=== PATIENT | male | born 1965 | race Caucasian/White ===

== ENCOUNTER 2024-03-07 16:04 | Emergency (ER) | payer OTHER, SELFPAY ==
[2024-03-07 16:11] VITALS: BP 137/84
[2024-03-07 16:30] LABS: % Basophils 0.8 % (0-2); % Eosinophils 13.6 % (0-6); % Immature Granulocytes 0.1 % (0-0.5); % Lymphocytes 23.9 % (20.5-51.1); % Monocytes 6.7 % (1.7-9.3); % Neutrophils 54.9 % (42.2-75.2); Absolute Basophils 0.1 10^3/uL (0-0.2); Absolute Lymphocytes 1.7 10^3/uL (1.2-3.4); Absolute Monocytes 0.5 10^3/uL (0.1-0.6); Absolute Neutrophils 3.9 10^3/uL (1.4-6.5); Hemoglobin 14.5 g/dL (13.0-18.0); Mean Corp Hgb Conc. 36.3 g/dL (33.0-37.0); Mean Corpuscular Hgb 28.6 pg (27.0-31.0); Mean Corpuscular Volume 78.9 fL (80.0-94.0); Mean Platelet Volume 9.1 fL (7.4-10.4); Nucleated Red Blood Cells % 0 % (-); Platelet Count 206 10^3/uL (130-400); Red Blood Cell Count 5.07 10^6/uL (4.70-6.10); Red Cell Dist. Width 12.9 % (11.5-14.5); White Blood Cell Count 7.1 10^3/uL (4.8-10.8)
[2024-03-07 16:54] LABS: ALT (SGPT) 22 U/L (0-50); AST (SGOT) 31 U/L (17-59); Albumin 4.1 g/dl (3.5-5.0); Alkaline Phosphatase 74 U/L (38-126); Blood Urea Nitrogen 15 mg/dl (9-20); Calcium 9.7 mg/dl (8.4-10.2); Carbon Dioxide 20 mmol/L (22-30); Glucose 291 mg/dl (70-99); Lipase 101 U/L (23-300); Total Bilirubin 0.6 mg/dl (0.2-1.3); Total Protein 6.6 g/dl (6.3-8.2); eGFR > 60.00
[2024-03-07 17:04] LABS: Chloride 104 mmol/L (98-107); Potassium 4.9 mmol/L (3.5-5.1); Sodium 131 mmol/L (135-145)
[2024-03-07 18:15] VITALS: BMI 31.4
[2024-03-07 18:21] VITALS: BP 139/69
[2024-03-07 19:00] VITALS: BP 125/79
--- NOTE | 2024-03-07 19:23 | ED.GENMED ---
History of Present Illness
General
Chief Complaint: Abdominal Pain
Source: patient
Exam Limitations: none
Time Seen by Provider: 03/07/24 19:01
Travel History
Have you had any contact with someone who has COVID-19?: No
Do you have any symptoms of coronavirus? Fever > 100 degrees, chills, cough, shortness of breath, sore throat, loss of taste or smell, muscle aches, or headache?: No
History of Present Illness
History of Present Illness:
This is a 58 year old male that comes in with c/o abd pain. States that he is on Ozempic and they recently have been increasing his dosage. States that he went from .25mg to .5mg and then up to 1mg about 3 weeks ago. States that after this he
feels like he has a'thunder storm in his stomach' as you can just hear the gas rolling around at night. States that he has lost 4 pounds. States that he started with diarrhea right away and every 20min he was going to the bathroom. States that this
is the third week of having diarrhea. Today he saw his [facility] and he sent him to the ER to r/o abd pain, issues before he changes his medication. States that he has had nausea, vomited a few nights ago and the diarrhea. Denies any fever,
chills, chest pain, SOB, headache, dizziness, urinary burning.
Past History
Past History
ED Past Medical History: Arrthythmia (Atrial fibrillation), HTN and NIDDM
ED Past Surgical History: Appendectomy, Orthopedic (Right leg surgery) and Other (facial reconstruction)
Social History
Tobacco: Former smoker
Alcohol: Occasional (Very ocasional)
Personal:
Living: with family
Review of Systems
Review of Systems
All Other Systems: ROS reviewed and negative except as documented in HPI and ROS
Constitutional: Reports no symptoms; Denies fever or chills
EENT: Reports no symptoms
Respiratory: Reports no symptoms; Denies cough or trouble breathing
Cardiac: Reports no symptoms; Denies chest pain
ABD/GI: Reports abdominal pain, nausea, vomiting and diarrhea
: Reports no symptoms; Denies dysuria, frequency or urgency
Musculoskeletal: Reports no symptoms
Skin: Reports no symptoms
Neurological: Reports no symptoms; Denies dizzy or headache
Psychiatric: Reports no symptoms
Phy Exam
General Physical Exam
General Presentation: well appearing and no apparent distress
General age: appears stated age
General Skin: warm and dry
General Habitus: normal
General Mental: alert
General Hydration: appears well hydrated
ENT Exam
ENT Exam: TM's normal, pharynx normal and neck supple
Eye Exam
Eye Exam: EOMI
Cardiovascular Exam
Cardiovascular Exam: regular rate/rhythm, no edema, no murmur and normal peripheral pulses
Pulmonary Exam
Pulmonary Exam: lungs clear, no respiratory distress, no rales, chest non tender, no crackles, no rhonchi, no wheezing and no cough
Gastrointestinal Exam
Gastrointestinal Exam: normal bowel sounds, non tender, soft, no organomegaly, no pulsatile mass and non distended
Musculoskeletal Exam
Musculoskeletal Exam: full ROM and no edema
Skin Exam
Skin Exam: normal color, warm/dry, no rash and no petechia
Psychiatric Exam
Psychiatric Exam: normal mood/affect
Course
Orders/Labs/Results
Orders:
Orders
03/07/24 16:23
CBC/With Diff [Complete Blood Count/With Diff] Urgent
CMP [Comprehensive Metabolic Panel] Urgent
Lipase Urgent
03/07/24 19:21
0.9% Sodium Chloride 1000 ml [Nss] 1,000 ml IV BOLUS
03/07/24 19:22
CT Abd/pelvis W Iv Cont Urgent
Comment:
Reason For Exam: abd pain, diarrhea
Abnormal Lab Results
03/07/24
16:23
MCV 78.9 L fL
(80.0-94.0)
Absolute Eos (auto) 1.0 H 10^3/uL
(0-0.7)
Eosinophils % 13.6 H %
(0-6)
Sodium 131 L mmol/L
(135-145)
Carbon Dioxide 20 L mmol/L
(22-30)
Glucose 291 H mg/dl
(70-99)
03/07/24 16:23
03/07/24 16:23
Sodium slightly low. carbon dioxide slightly low. Glucose nonfasting. Lipase normal at 101
Vital Signs
Initial and Last Documented VS:
Initial Vital Signs
Temp Pulse Resp BP Pulse Ox
98.1 F 80 18 137/84 98
03/07/24 16:11 03/07/24 16:11 03/07/24 16:11 03/07/24 16:11 03/07/24 16:11
Last Documented Vital Signs
Temp Pulse Resp BP Pulse Ox
98.1 F 80 18 142/82 95
03/07/24 16:11 03/07/24 20:30 03/07/24 20:30 03/07/24 20:00 03/07/24 20:30
MDM/Problems Addressed
Differential Diagnosis Includes:
Diarrhea due to Medication. Colitis
MDM/Problems Addressed:
This is a 58 year old male that comes in with c/o abd pain and diarrhea. States that he is taking Ozempic and his dose has been increased. States that this increase was 3 weeks ago and since that time he has had diarrhea. States that he went to the
[facility] today and he was sent here for evaluation.
Will get labs, CT abd, give IV fluids.
Back into see patient. Patient has not had any diarrhea here so a stool was not obtained. Patient states that he feels that it is slowing down. Reviewed CT findings with patient and will start on Protonix daily for the next 30 days. Patient to also
follow up with the GI specialist for further evaluation. Patient to return with any concerns.
Chronic conditions affecting care: DM
Acute Exacerbation and/or Progression of Chronic Illness: DM
*Radiology
Radiology exam reviewed: radiology read reviewed (CT-Severe circumferential wall thickening of the distal esophagus. This can be seen with Esophagitis. A mural mass cannot be excluded. Mild fecal material throughout the colon. Mild diverticulosis. )
*Pulse Oximetry
Patient hypoxic: no
*EKG
Interpreted by ED Provider?: NA
Rate: EKG- N/A
*Small Equipment Operator Interpretation
Rate: normal
Heart Rate: 77
Rhythm: sinus
*Critical Care Note
Total Time (30-74mins, 75-104mins- exclusive of procedures): Not Applicable
ED Attending Note
-
Portions of this chart may have been created with voice recognition software.� Occasional wrong word or��sound alike� substitutions may have occurred due to the inherent limitations of voice recognition software.
Discharge Plan
Departure
Patient Disposition: Home (Routine Discharge)
Date of Disposition: 03/07/24
Time of Disposition: 22:02
Patient with high blood pressure during this ER visit?: Yes
Condition: Good
Covid-19: Not Applicable
Discharge Problem:
Esophagitis
Instructions: Esophagitis, BLOOD PRESSURE
Prescriptions:
New
pantoprazole [Protonix] 40 mg tablet,delayed release (DR/EC)
40 mg PO DAILY Qty: 30 0RF
No Action
insulin aspart U-100 100 unit/mL (3 mL) insulin pen
24 - 36 unit SC AC
atorvastatin 20 mg Tablet
20 mg PO HS
metoprolol succinate 50 mg Tablet Extended Release 24 Hr
50 mg PO DAILY
pantoprazole 40 mg Tablet,Delayed Release (Dr/Ec)
40 mg PO DAILY
trazodone 150 mg Tablet
300 mg PO HS
buspirone 10 mg Tablet
20 mg PO BID
lisinopril 5 mg Tablet
5 mg PO DAILY
ergocalciferol (vitamin D2) 1,250 mcg (50,000 unit) Capsule
1,250 mcg PO DAILY
duloxetine 60 mg Capsule,Delayed Release(Dr/Ec)
60 mg PO BID
Eliquis 5 mg Tablet
5 mg PO DAILY
Tresiba FlexTouch U-100 100 unit/mL (3 mL) Insulin Pen
100 unit SC HS
Jardiance 10 mg Tablet
10 mg PO DAILY
Referrals:
NONE,* [Family Provider] -
Savana Diaz, DO [Active] - Call in 1-3 days for appt
Activity Restrictions/Additional Instructions:
As discussed, your blood work shows that your sodium is slightly low. Your CT is negative for any colitis or diverticulitis but you have esophagitis. You have had a prescription for Protonix sent to your Pharmacy. Please take this daily. Follow up
with the GI specialist as they may need to do an Endoscopy to rule out any other underlying problems. The diarrhea is most likely due to the Ozempic. Please follow up with the your [facility]. Please increase your water intake to 8-8oz glasses
daily. IF YOU HAVE ANY OTHER CONCERNS PLEASE RETURN TO THE EMERGENCY ROOM.
Interventions
Interventions:
*Risk Screen - Suicide Last Done: 03/07/24 18:15
*General Assessment Last Done: 03/07/24 18:15
*Neglect/Abuse Screening Last Done: 03/07/24 18:15
ED- Fall Risk Assessment Last Done: 03/07/24 18:00
*ED COVID-19 Vaccine History Last Done: 03/07/24 18:00
RP-Phzsfj-Ubkyevkyfw Assessment Last Done: 03/07/24 18:15
Discharge Date and Time
Print Language: SPANISH
[2024-03-07] MEDS: NSS 1000 IV (19:33)
[2024-03-07 20:00] VITALS: BP 142/82
[2024-03-07] MEDS: PROTONIX IV 40 MG IV (22:07)
== END 2024-03-07 22:18 | disposition home or self-care (01) ==
LOC: EMR 16:04
PROVIDERS: Emergency Medicine; EMERGENCY PHYSICIAN Emergency Medicine
DX: R10.9 Unspecified abdominal pain (principal)
CPT/HCPCS: 99284; 96374; 96361; 74177; 80053; 83690; 85025; Q9967

== ENCOUNTER 2024-05-29 16:37 | Emergency (ER) | payer OTHER, SELFPAY ==
[2024-05-29 16:39] VITALS: BP 119/70
[2024-05-29 17:03] LABS: % Basophils 0.6 % (0-2); % Eosinophils 4.4 % (0-6); % Immature Granulocytes 0.9 % (0-0.5); % Lymphocytes 26.6 % (20.5-51.1); % Monocytes 6.8 % (1.7-9.3); % Neutrophils 60.7 % (42.2-75.2); Absolute Basophils 0.1 10^3/uL (0-0.2); Absolute Eosinophils 0.3 10^3/uL (0-0.7); Absolute Immature Granulocytes 0.1 10^3/uL (0-0.05); Absolute Lymphocytes 2.1 10^3/uL (1.2-3.4); Absolute Monocytes 0.5 10^3/uL (0.1-0.6); Absolute Neutrophils 4.7 10^3/uL (1.4-6.5); Hemoglobin 13.5 g/dL (13.0-18.0); Mean Corp Hgb Conc. 34.6 g/dL (33.0-37.0); Mean Corpuscular Hgb 28.2 pg (27.0-31.0); Mean Corpuscular Volume 81.6 fL (80.0-94.0); Mean Platelet Volume 9.5 fL (7.4-10.4); Nucleated Red Blood Cells % 0 % (-); Platelet Count 168 10^3/uL (130-400); Red Blood Cell Count 4.78 10^6/uL (4.70-6.10); Red Cell Dist. Width 12.6 % (11.5-14.5); White Blood Cell Count 7.8 10^3/uL (4.8-10.8)
[2024-05-29 17:15] LABS: ALT (SGPT) 17 U/L (0-50); AST (SGOT) 31 U/L (17-59); Albumin 4.3 g/dl (3.5-5.0); Alkaline Phosphatase 74 U/L (38-126); Blood Urea Nitrogen 24 mg/dl (9-20); Calcium 9.7 mg/dl (8.4-10.2); Carbon Dioxide 26 mmol/L (22-30); Chloride 98 mmol/L (98-107); Glucose 258 mg/dl (70-99); Potassium 4.9 mmol/L (3.5-5.1); Sodium 132 mmol/L (135-145); Total Bilirubin 0.7 mg/dl (0.2-1.3); Total Protein 6.5 g/dl (6.3-8.2); eGFR 58.26
[2024-05-29 17:26] LABS: Troponin I < 0.012 ng/ml
--- NOTE | 2024-05-29 18:31 | ED.GENMED ---
History of Present Illness
General
Chief Complaint: Visual Problem
Time Seen by Provider: 05/29/24 18:30
History of Present Illness
History of Present Illness:
HPI: The patient presents with headaches ongoing for the last few days which progressed into some dizziness and also had a 'blue dot' that he was seeing for several hours this morning. He is on Eliquis for A-fib. He also reports some back pain as
well as some finger swelling. Currently he has no abnormal vision. He also reports some neck 'tightness'.
EXAM:
GENERAL: Well appearing in no distress, the patient appears comfortable currently
HEENT: Moist oral mucosa
CARDIOVASCULAR: No murmurs, normal heart rate, regular rhythm, No chest wall tenderness
PULMONARY: No respiratory distress, breath sounds are clear and equal
ABDOMEN: Soft with no peritoneal signs, no tenderness
NEUROLOGIC: Excellent strength all extremities, no coordination deficits
PSYCHIATRIC: Appropriate mental status, normal insight and judgement
EXTREMITIES: Nontender, no edema, moves all extremities equally
SKIN: No rash, no lesions
TIME OF INITIAL ENCOUNTER: 6:30 PM
NUMBER AND COMPLEXITY OF PROBLEMS ADDRESSED AT THE ENCOUNTER
� Chronic conditions affecting care: A-fib, high blood pressure, diabetes
� Acute Exacerbation and/or Progression of Chronic Illness: This is an acute problem
� Differential Diagnosis includes: TIA, hypoglycemia, SAH
AMOUNT AND/OR COMPLEXITY OF DATA TO BE REVIEWED AND ANALYZED
� I performed an independent evaluation of and my interpretation is:
EKG: Sinus 69, occasional PACs
CT: CT of the head shows no acute abnormality
X-rays:
Laboratory Studies: CBC unremarkable, creatinine borderline at 1.4 with GFR 58, troponin negative
Other:
� Review of other/old records: The patient was seen in the ED 2 months ago with esophagitis, prior records from February show a creatinine of 1.2
� Clinical information was obtained by an independent historian: None needed
� Prescriptions/Medications Considered but not given:
� Further testing considered but not performed:
RISK OF COMPLICATIONS AND/OR MORBIDITY OR MORTALITY OF PATIENT MANAGEMENT
� Social determinants of health affecting care: Lives at home
� Discussion with other providers:
� Escalation of care including admission/observation vs risk of discharge considered: As patient is on Eliquis and has headache will obtain CT imaging of the brain. His visual changes has resolved. He is very comfortable in
appearance. His renal function is slightly worse compared to prior. On reassessment at 8:10 PM, the patient was eager to go home and did not want anything further done. He just wanted to leave. I did review the studies with the patient prior to
discharge. He is to follow-up with PMD
Past History
Past History
ED Past Medical History: Arrthythmia (Atrial fibrillation), HTN and NIDDM
ED Past Surgical History: Appendectomy, Orthopedic (Right leg surgery) and Other (facial reconstruction)
Social History
Tobacco: Former smoker
Alcohol: Occasional (Very ocasional)
Personal:
Living: with family
Phy Exam
Physical Exam
Physical Exam:
See HPI
Course
Orders/Labs/Results
Orders:
Orders
05/29/24 16:38
Electrocardiogram (*1) Urgent
Reason for Study: Chest Pain
EKG- Treatment ONCE
05/29/24 16:[address] [CT Head W/o Iv Contrast] Stat
Comment:
Reason For Exam: vision changes
05/29/24 16:56
Complete Blood Count/With Diff Urgent
Comprehensive Metabolic Panel Urgent
Troponin I Urgent
Abnormal Lab Results
05/29/24
16:56
Abs Immat Gran (auto) 0.1 H 10^3/uL
(0-0.05)
Immature Gran % 0.9 H %
(0-0.5)
Sodium 132 L mmol/L
(135-145)
BUN 24 H mg/dl
(9-20)
Creatinine 1.4 H mg/dL
(0.7-1.3)
Glucose 258 H mg/dl
(70-99)
05/29/24 16:56
05/29/24 16:56
Vital Signs
Blood pressure: 125/68
Initial and Last Documented VS:
Initial Vital Signs
Temp Pulse Resp BP Pulse Ox
98.4 F 59 18 119/70 95
05/29/24 16:39 05/29/24 16:39 05/29/24 16:39 05/29/24 16:39 05/29/24 16:39
Last Documented Vital Signs
Temp Pulse Resp BP Pulse Ox
98.4 F 59 18 119/70 95
05/29/24 16:39 05/29/24 16:39 05/29/24 16:39 05/29/24 16:39 05/29/24 18:51
*Critical Care Note
Total Time (30-74mins, 75-104mins- exclusive of procedures): Not Applicable
ED Attending Note
-
Portions of this chart may have been created with voice recognition software.� Occasional wrong word or��sound alike� substitutions may have occurred due to the inherent limitations of voice recognition software.
Discharge Plan
Departure
Patient Disposition: Home (Routine Discharge)
Date of Disposition: 05/29/24
Time of Disposition: 20:10
Patient with high blood pressure during this ER visit?: Yes
Discharge Problem:
Change in vision
Prescriptions:
No Action
insulin aspart U-100 100 unit/mL (3 mL) insulin pen
24 - 36 unit SC AC
atorvastatin 20 mg Tablet
20 mg PO HS
metoprolol succinate 50 mg Tablet Extended Release 24 Hr
50 mg PO DAILY
pantoprazole 40 mg Tablet,Delayed Release (Dr/Ec)
40 mg PO DAILY
trazodone 150 mg Tablet
300 mg PO HS
buspirone 10 mg Tablet
20 mg PO BID
lisinopril 5 mg Tablet
5 mg PO DAILY
ergocalciferol (vitamin D2) 1,250 mcg (50,000 unit) Capsule
1,250 mcg PO DAILY
duloxetine 60 mg Capsule,Delayed Release(Dr/Ec)
60 mg PO BID
Eliquis 5 mg Tablet
5 mg PO DAILY
Tresiba FlexTouch U-100 100 unit/mL (3 mL) Insulin Pen
100 unit SC HS
Jardiance 10 mg Tablet
10 mg PO DAILY
pantoprazole [Protonix] 40 mg tablet,delayed release (DR/EC)
40 mg PO DAILY Qty: 30 0RF
Referrals:
Fe Jackson PA-C [Family Provider] -
Activity Restrictions/Additional Instructions:
The cause of your symptoms is unclear. Blood work shows a glucose of 258, kidney function is borderline abnormal, CBC is normal, cardiac blood work and EKG showed no sign of heart attack. CAT scan of the brain shows no concerning abnormality.
Please follow-up with your primary care doctor.
Interventions
Interventions:
*Risk Screen - Suicide Last Done: 05/29/24 18:51
*General Assessment Last Done: 05/29/24 18:51
*Neglect/Abuse Screening Last Done: 05/29/24 18:51
*ED COVID-19 Vaccine History Last Done: 05/29/24 18:51
ED- Cardiac Assessment Last Done: 05/29/24 18:51
ED-EENT Assessment Last Done: 05/29/24 18:51
ED- Neurological Assessment Last Done: 05/29/24 18:51
ED- Pulmonary Assessment Last Done: 05/29/24 18:51
ED-Skin Assessment Last Done: 05/29/24 18:51
Discharge Date and Time
Print Language: HEBREW
[2024-05-29 18:48] VITALS: BP 121/87
[2024-05-29 19:00] VITALS: BP 124/87
[2024-05-29 20:00] VITALS: BP 125/73
== END 2024-05-29 20:18 | disposition home or self-care (01) ==
LOC: EMR 16:37
PROVIDERS: Student in an Organized Health Care Education/Training Program; EMERGENCY PHYSICIAN Emergency Medicine; FAMILY PHYSICIAN Physician Assistant
DX: H53.8 Other visual disturbances (principal); R51.9 Headache, unspecified; R42 Dizziness and giddiness; M79.89 Other specified soft tissue disorders; M54.9 Dorsalgia, unspecified; I48.91 Unspecified atrial fibrillation; Z79.01 Long term (current) use of anticoagulants; Z88.8 Allergy status to other drugs, medicaments and biological substances
CPT/HCPCS: 99284; 70450; 80053; 84484; 85025; 93005

== ENCOUNTER 2024-08-27 23:59 | Inpatient (IN) | payer OTHER, SELFPAY ==
[2024-08-27] VITALS (20 sets, daily range): BP systolic 68–151; BP diastolic 42–104; BMI 35.3
[2024-08-27 22:01] LABS: % Basophils 0.5 % (0-2); % Eosinophils 3.3 % (0-6); % Immature Granulocytes 0.6 % (0-0.5); % Lymphocytes 12.3 % (20.5-51.1); % Monocytes 7.4 % (1.7-9.3); % Neutrophils 75.9 % (42.2-75.2); Absolute Basophils 0.1 10^3/uL (0-0.2); Absolute Eosinophils 0.3 10^3/uL (0-0.7); Absolute Immature Granulocytes 0.1 10^3/uL (0-0.05); Absolute Lymphocytes 1.2 10^3/uL (1.2-3.4); Absolute Monocytes 0.7 10^3/uL (0.1-0.6); Absolute Neutrophils 7.4 10^3/uL (1.4-6.5); Hematocrit 42.9 % (39.0-52.0); Hemoglobin 15.7 g/dL (13.0-18.0); Mean Corp Hgb Conc. 36.6 g/dL (33.0-37.0); Mean Corpuscular Hgb 28.3 pg (27.0-31.0); Mean Corpuscular Volume 77.3 fL (80.0-94.0); Mean Platelet Volume 9.3 fL (7.4-10.4); Nucleated Red Blood Cells % 0 % (-); Platelet Count 197 10^3/uL (130-400); Red Blood Cell Count 5.55 10^6/uL (4.70-6.10); Red Cell Dist. Width 13.1 % (11.5-14.5); White Blood Cell Count 9.7 10^3/uL (4.8-10.8)
[2024-08-27] MEDS: LOPRESSOR 5 MG IV (22:04)
[2024-08-27 22:24] LABS: ALT (SGPT) 21 U/L (0-50); AST (SGOT) 38 U/L (17-59); Albumin 4.7 g/dl (3.5-5.0); Alkaline Phosphatase 70 U/L (38-126); Blood Urea Nitrogen 20 mg/dl (9-20); Calcium 9.8 mg/dl (8.4-10.2); Carbon Dioxide 19 mmol/L (22-30); Chloride 105 mmol/L (98-107); Estimated Creatinine Clearance 96 ml/min; Glucose 204 mg/dl (70-99); Magnesium 1.9 mg/dl (1.6-2.3); Potassium 4.4 mmol/L (3.5-5.1); Sodium 139 mmol/L (135-145); Total Bilirubin 0.7 mg/dl (0.2-1.3); Total Protein 7.1 g/dl (6.3-8.2); eGFR > 60.00
[2024-08-27] MEDS: CARDIZEM 20 MG IV (22:29)
[2024-08-27 22:35] LABS: NT-proBNP 914 pg/ml; Troponin I < 0.012 ng/ml
--- NOTE | 2024-08-27 22:42 | EDRN ---
Dr Ortiz and Cherry HASKINS at bedside - EKG being done. Second IV access being obtained
--- NOTE | 2024-08-27 22:45 | EDRN ---
At approximately 22:36, pt. became diaphoretic, hypotensive, and bradycardic w/ c/o feeling lightheaded. ED RN, attending, AUTOMATION AND CONTROLS INSTRUCTOR and assisting staff to bedside, pads placed on pt., code cart to bedside, IV fluid bolus initiated, pt. placed in
trendelenberg, second IV site established Pt. mentating during event, pt. had episode of diarrhea and vomited x 1 during event. Pt. medicated per MD orders, then vitals began to normalize. Epi gtt. initiated per MD orders, pt. no longer nauseas at
this time.
[2024-08-27] MEDS: ATROPINE 0.1 MG/ML SYRINGE 0.5 MG IV (22:47)
--- NOTE | 2024-08-27 22:51 | EDRN ---
Attempted to sit pt up for his comfort but bp dropped.
[2024-08-27] MEDS: CALCIUM GLUCONATE 1000 MG IV (22:52)
[2024-08-27] MEDS: NSS 1000 IV (22:52)
--- NOTE | 2024-08-27 22:54 | EDRN ---
Dr Ortiz gave vo for 1g calcium gluconate over 2 minutes - being administered by Amy Campoverde RN. Pharmacy called for epi drip.
[2024-08-27] MEDS: ZOFRAN 4 MG IV (22:56)
--- NOTE | 2024-08-27 22:57 | EDRN ---
Pt was placed on bedpan for BM. Bedpan removed. Pt then complained of nausea and that he was going to vomit or have another BM while zofran being administered. Pt vomiting.
--- NOTE | 2024-08-27 22:58 | EDRN ---
Pt denies chest pain, says nausea is better. VO for epinephrine infusion from Dr Ortiz
--- NOTE | 2024-08-27 23:04 | EDRN ---
Pt being cleaned after BM - nausea gone. Pt more talkative with staff, making jokes.
--- NOTE | 2024-08-27 23:16 | ED.GENMED ---
History of Present Illness
<Alexandr Ortiz MD - Last Filed: 08/27/24 23:21>
General
Chief Complaint: Chest Pain
Time Seen by Provider: 08/27/24 21:46
<Cheryl Cummings PA-C - Last Filed: 08/28/24 00:52>
General
Source: patient
Exam Limitations: none
Nursing documentation reviewed up to this point in time: agreed with
History of Present Illness
History of Present Illness:
59 y/o M
h/o atrial fibrillation since 2004
has been on eliqui
metoprolol 50 mg succ daily
says 1.5 weeks ago he noticed some chest tightness and felt sob; he thought it was his anxiety so he was taking extra buspirone
he also has been on trulicity and having a lot of dyspepsia and nauesa with it, some diarrhea
yesterday and today he felt his HR elevate significantly and he had some chest tightness
he realized he was probably in afib
he has been compliant with meds
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
no fever, chills, leg swelling, vomiting;
no pleuritic pain
Past History
<Alexandr Ortiz MD - Last Filed: 08/27/24 23:21>
Past History
ED Past Medical History: Arrthythmia (Atrial fibrillation), HTN and NIDDM
ED Past Surgical History: Appendectomy, Orthopedic (Right leg surgery) and Other (facial reconstruction)
Social History
Tobacco: Former smoker
Alcohol: Occasional (Very ocasional)
Personal:
Living: with family
Review of Systems
<Cheryl Cummings PA-C - Last Filed: 08/28/24 00:52>
Review of Systems
Allergies reviewed?: Yes
All Other Systems: Not applicable
Phy Exam
<Cheryl Cummings PA-C - Last Filed: 08/28/24 00:52>
Physical Exam
Physical Exam:
GENERAL: Alert , mildly anxious, not diaphoretic
EYE: pupils equal and reactive
NECK: Supple
ENT: o/p clr, mmm.
CARDIAC: irregular tachycardic, no mumru
LUNGS: Clear breath sounds bilaterally, no acute respiratory distress, no wheezes/rales/rhonchi
ABDOMEN: Soft, obese, without focal tenderness, no r/g, no cvat, normal bowel sounds
NEUROLOGICAL: Alert and oriented, no focal neuro deficits, cn intact
SKIN: Warm and dry, skin intact.
MUSCULOSKELETAL: No edema, well perfused. neg yosi's sign
PSYCH: Normal and appropriate interaction.
Scores
<Cheryl Cummings PA-C - Last Filed: 08/28/24 00:52>
Heart Score for Chest Pain Patients
STEMI patient?: No
History: Moderately Suspicious
ECG: Nonspecific Repolarization
Age: >45 - <65 years
Risk Factors: >/= 3 Risk Factors or History of CAD
Troponin: </= Normal Limit
Heart Score for Chest Pain Patients: 5
Heart Score Risk: 20.3% MACE over next 6 weeks
Course
<Alexandr Ortiz MD - Last Filed: 08/27/24 23:21>
Orders/Labs/Results
Orders:
Orders
08/27/24 21:28
ECG [Electrocardiogram (*1)] Urgent
Reason for Study: Chest Pain
08/27/24 21:29
EKG- Treatment ONCE
08/27/24 21:53
Cardiac Monitoring- Treatment ONCE
IV Insert/Care/Rem.- Treatment PRN
O2 Therapy [RESP] Urgent
Titrate/Wean O2 to maintain O2 sat greater than (%): 90
Special Instructions: Maintain sats >/=90%
Pulse Ox/spot Check [RESP] Urgent
Quantity: 1
Special Instructions: ON ROOM AIR
08/27/24 21:54
Complete Blood Count/With Diff Urgent
Comprehensive Metabolic Panel Urgent
Magnesium Urgent
NT-proBNP Urgent
Troponin I Urgent
08/27/24 21:57
Diltiazem HCl [Cardizem] 20 mg IV NOW STA
08/27/24 21:58
Metoprolol [Lopressor] 5 mg IV NOW STA
08/27/24 22:18
Diltiazem HCl [Cardizem] 20 mg IV NOW STA
08/27/24 22:41
EKG [Electrocardiogram (*1)] Stat
Reason for Study: Atrial Fibrillation
EKG- Treatment ONCE
Calcium CHLORIDE [Calcium Chloride 10% Syringe] 1,000 mg .ROUTE .STK-MED ONE
08/27/24 22:42
Calcium Gluconate 1,000 mg .ROUTE .STK-MED ONE
08/27/24 22:46
Atropine Sulfate [Atropine 0.1 mg/ml Syringe] 0.5 mg IV NOW STA
08/27/24 22:47
Atropine Sulfate [Atropine 0.1 mg/ml Syringe] 0.5 mg IV NOW STA
08/27/24 22:48
EKG [Electrocardiogram (*1)] Urgent
Reason for Study: Atrial Fibrillation
08/27/24 22:49
EKG- Treatment ONCE
08/27/24 22:51
Ondansetron Injectable [Zofran] 4 mg .ROUTE .STK-MED ONE
08/27/24 22:52
0.9% Sodium Chloride 1000 ml [Nss] 1,000 ml IV BOLUS
08/27/24 22:55
Ondansetron Injectable [Zofran] 4 mg IV NOW STA
08/27/24 23:00
Flush (0.9% Sodium Chloride) [Flush (Nss)] See Dose Instructions IV PER PROTOCOL
08/27/24 23:02
EKG [Electrocardiogram (*1)] Urgent
Reason for Study: Abnormal EKG
EKG- Treatment ONCE
08/27/24 23:21
Calcium Gluconate 1,000 mg IV NOW STA
EPINEPHrine 4 mg/250 mL NSS [Adrenalin] 4 mg in 250 ml IV NOW
Initial dose in mcg/min, then titrate:: 2
Titrate to keep:: MAP > 65 mmHg
Titrate by mcg/min:: 0.5 - 1 mcg/minute
Frequency of titrations (minutes):: 5
Maximum dose in mcg/min:: 10
Begin to taper infusion when:: Remained at goal for 4hrs
Taper by mcg/min:: 0.5 - 1 mcg/minute
Frequency of taper (minutes) if patient maintains goal:: 30
Taper to off?: Yes
If infusion off & no longer maintaining goal:: Contact Provider
08/27/24 23:28
EKG [Electrocardiogram (*1)] Urgent
Reason for Study: Other
Other Reason for Exam: change in EKG
EKG- Treatment ONCE
08/27/24 23:57
Admit/Transfer Patient As Directed
Co-Sign Provider:
Level of Care: Inpatient admission
Assign to:: ICU
Physician / Group: hospitalist
Diagnosis: symtomatic bradycardia
Reason for Hospitalization: symptomatic bradycardia
Expected length of stay greater than two midnights?: Yes
ELOS- Estimated Length of Stay in days: 2
I certify the patient meets the requirements for IP care: Yes
PRN Pain Medication Management As Directed
May give lesser potent ordered pain med per pt: Yes
preference::
Protocol:: Medication orders for pain may be administered in a
manner that supports deferring to patient preference
when the pt is:
- Requesting an ordered lesser potent pain medication.
Least to most potent pain medications are defined
as: acetaminophen < NSAID < tramadol < opioids
(morphine, oxycodone, hydromorphone).
- Requesting a lesser dose of the same medication IF
ORDERED.
- Requesting a less intrusive route of administration
if both routes are prescribed by the provider (PO <
IV).
08/27/24 23:58
Code Status As Directed
Resuscitation Status: Full Code
08/28/24 08:00
Apixaban [Eliquis] 5 mg PO DAILY
Buspirone [Buspar] 20 mg PO BID
Dapagliflozin [Farxiga] 10 mg PO DAILY
Duloxetine Delayed Release [Cymbalta Delayed Release] 60 mg PO BID
Metoprolol Xl [Toprol Xl] 50 mg PO DAILY
08/28/24 22:00
Atorvastatin [Lipitor] 20 mg PO HS
Abnormal Lab Results
08/27/24
21:54
MCV 77.3 L fL
(80.0-94.0)
Abs Immat Gran (auto) 0.1 H 10^3/uL
(0-0.05)
Absolute Neuts (auto) 7.4 H 10^3/uL
(1.4-6.5)
Absolute Monos (auto) 0.7 H 10^3/uL
(0.1-0.6)
Immature Gran % 0.6 H %
(0-0.5)
Neutrophils % 75.9 H %
(42.2-75.2)
Lymphocytes % 12.3 L %
(20.5-51.1)
Carbon Dioxide 19 L mmol/L
(22-30)
Glucose 204 H mg/dl
(70-99)
08/27/24 21:54
08/27/24 21:54
Vital Signs
Initial and Last Documented VS:
Initial Vital Signs
Temp Pulse Resp BP Pulse Ox
98.0 F 83 20 142/88 97
08/27/24 21:29 08/27/24 21:29 08/27/24 21:29 08/27/24 21:29 08/27/24 21:29
Last Documented Vital Signs
Temp Pulse Resp BP Pulse Ox
98.0 F 85 18 137/87 96
08/27/24 21:29 08/28/24 00:35 08/28/24 00:35 08/28/24 00:35 08/28/24 00:35
<Cheryl Cummings PA-C - Last Filed: 08/28/24 00:52>
Orders/Labs/Results
Orders:
Orders
08/27/24 21:28
ECG [Electrocardiogram (*1)] Urgent
Reason for Study: Chest Pain
08/27/24 21:29
EKG- Treatment ONCE
08/27/24 21:53
Cardiac Monitoring- Treatment ONCE
IV Insert/Care/Rem.- Treatment PRN
O2 Therapy [RESP] Urgent
Titrate/Wean O2 to maintain O2 sat greater than (%): 90
Special Instructions: Maintain sats >/=90%
Pulse Ox/spot Check [RESP] Urgent
Quantity: 1
Special Instructions: ON ROOM AIR
08/27/24 21:54
Complete Blood Count/With Diff Urgent
Comprehensive Metabolic Panel Urgent
Magnesium Urgent
NT-proBNP Urgent
Troponin I Urgent
08/27/24 21:57
Diltiazem HCl [Cardizem] 20 mg IV NOW STA
08/27/24 21:58
Metoprolol [Lopressor] 5 mg IV NOW STA
08/27/24 22:18
Diltiazem HCl [Cardizem] 20 mg IV NOW STA
08/27/24 22:41
EKG [Electrocardiogram (*1)] Stat
Reason for Study: Atrial Fibrillation
EKG- Treatment ONCE
Calcium CHLORIDE [Calcium Chloride 10% Syringe] 1,000 mg .ROUTE .STK-MED ONE
08/27/24 22:42
Calcium Gluconate 1,000 mg .ROUTE .STK-MED ONE
08/27/24 22:46
Atropine Sulfate [Atropine 0.1 mg/ml Syringe] 0.5 mg IV NOW STA
08/27/24 22:47
Atropine Sulfate [Atropine 0.1 mg/ml Syringe] 0.5 mg IV NOW STA
08/27/24 22:48
EKG [Electrocardiogram (*1)] Urgent
Reason for Study: Atrial Fibrillation
08/27/24 22:49
EKG- Treatment ONCE
08/27/24 22:51
Ondansetron Injectable [Zofran] 4 mg .ROUTE .STK-MED ONE
08/27/24 22:52
0.9% Sodium Chloride 1000 ml [Nss] 1,000 ml IV BOLUS
08/27/24 22:55
Ondansetron Injectable [Zofran] 4 mg IV NOW STA
08/27/24 23:00
Flush (0.9% Sodium Chloride) [Flush (Nss)] See Dose Instructions IV PER PROTOCOL
08/27/24 23:02
EKG [Electrocardiogram (*1)] Urgent
Reason for Study: Abnormal EKG
EKG- Treatment ONCE
08/27/24 23:21
Calcium Gluconate 1,000 mg IV NOW STA
EPINEPHrine 4 mg/250 mL NSS [Adrenalin] 4 mg in 250 ml IV NOW
Initial dose in mcg/min, then titrate:: 2
Titrate to keep:: MAP > 65 mmHg
Titrate by mcg/min:: 0.5 - 1 mcg/minute
Frequency of titrations (minutes):: 5
Maximum dose in mcg/min:: 10
Begin to taper infusion when:: Remained at goal for 4hrs
Taper by mcg/min:: 0.5 - 1 mcg/minute
Frequency of taper (minutes) if patient maintains goal:: 30
Taper to off?: Yes
If infusion off & no longer maintaining goal:: Contact Provider
08/27/24 23:28
EKG [Electrocardiogram (*1)] Urgent
Reason for Study: Other
Other Reason for Exam: change in EKG
EKG- Treatment ONCE
08/27/24 23:57
Admit/Transfer Patient As Directed
Co-Sign Provider:
Level of Care: Inpatient admission
Assign to:: ICU
Physician / Group: hospitalist
Diagnosis: symtomatic bradycardia
Reason for Hospitalization: symptomatic bradycardia
Expected length of stay greater than two midnights?: Yes
ELOS- Estimated Length of Stay in days: 2
I certify the patient meets the requirements for IP care: Yes
PRN Pain Medication Management As Directed
May give lesser potent ordered pain med per pt: Yes
preference::
Protocol:: Medication orders for pain may be administered in a
manner that supports deferring to patient preference
when the pt is:
- Requesting an ordered lesser potent pain medication.
Least to most potent pain medications are defined
as: acetaminophen < NSAID < tramadol < opioids
(morphine, oxycodone, hydromorphone).
- Requesting a lesser dose of the same medication IF
ORDERED.
- Requesting a less intrusive route of administration
if both routes are prescribed by the provider (PO <
IV).
08/27/24 23:58
Code Status As Directed
Resuscitation Status: Full Code
08/28/24 08:00
Apixaban [Eliquis] 5 mg PO DAILY
Buspirone [Buspar] 20 mg PO BID
Dapagliflozin [Farxiga] 10 mg PO DAILY
Duloxetine Delayed Release [Cymbalta Delayed Release] 60 mg PO BID
Metoprolol Xl [Toprol Xl] 50 mg PO DAILY
08/28/24 22:00
Atorvastatin [Lipitor] 20 mg PO HS
Abnormal Lab Results
08/27/24
21:54
MCV 77.3 L fL
(80.0-94.0)
Abs Immat Gran (auto) 0.1 H 10^3/uL
(0-0.05)
Absolute Neuts (auto) 7.4 H 10^3/uL
(1.4-6.5)
Absolute Monos (auto) 0.7 H 10^3/uL
(0.1-0.6)
Immature Gran % 0.6 H %
(0-0.5)
Neutrophils % 75.9 H %
(42.2-75.2)
Lymphocytes % 12.3 L %
(20.5-51.1)
Carbon Dioxide 19 L mmol/L
(22-30)
Glucose 204 H mg/dl
(70-99)
08/27/24 21:54
08/27/24 21:54
Vital Signs
Initial and Last Documented VS:
Initial Vital Signs
Temp Pulse Resp BP Pulse Ox
98.0 F 83 20 142/88 97
08/27/24 21:29 08/27/24 21:29 08/27/24 21:29 08/27/24 21:29 08/27/24 21:29
Last Documented Vital Signs
Temp Pulse Resp BP Pulse Ox
98.0 F 85 18 137/87 96
08/27/24 21:29 08/28/24 00:35 08/28/24 00:35 08/28/24 00:35 08/28/24 00:35
<Cheryl Cummings PA-C - Last Filed: 08/28/24 00:52>
MDM/Problems Addressed
Differential Diagnosis Includes:
afib with RVR
MDM/Problems Addressed:
59 y/o M
afib with RVR
on eliquis
on metoprolol
has not seen cards in years
has had chest tightness/anxiety for a week and thought it was anxiety but realized it was probably his HR today
has had some ongoing GI issues while he has been on trulicity
on arrival he was going in and out of afib with RVR and rate controlled afib 90s but was up in the 170s with bp 150/90
he was in no distress
i spoke [facility] ED attending about course of manaemetn who recommended lopressor
started atih 5 mg of lopressor
he had transient response into the 90s but then back up to 140s; bp 140/90
after 30 minutes and still tachycardic, i d/w ed attending about giving cardizem
pt was given 20 mg of cardizem and initially had no issues but within 10 minutes he became hypotensive 80s/40s and had a bradycardia - appearing like either slow afib wiht PACs or juntional rhythm
he was still mentating but had episodes of vomiting and diarrhea
Ivf, calcium gluconate given
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
we reviewed ekg tracings and dr. acosta confirmed he did not thnk the patient was in a block
recommended atropine 0.5 mg and then epi or dopamine drip
ed attending spoke with him directly and they decided on epi drip
pt's bp and HR repsonded well to the epi and he was eventually able to be weaned off but had episode of vagaling with n/v/d again which again caused junctional looking rhythma nd bradycardia
the 2nd episode was much more transient
his troponin is neg
there is no reason to suspect PE, on eliquis and compliant, not hypoxic, no pleuritic pain
pt tab be admitted to ICU tonight for close observation
signed out to hospitalist.
<Alexandr Ortiz MD - Last Filed: 08/27/24 23:21>
*Critical Care Note
Total Time (30-74mins, 75-104mins- exclusive of procedures): 35
<Cheryl Cummings PA-C - Last Filed: 08/28/24 00:52>
*Critical Care Note
Total Time (30-74mins, 75-104mins- exclusive of procedures): 60
comment:
Critical care statement: A total of 60 minutes of critical care time was provided for this patient. This includes management of unstable vital signs, evaluation of the patient at bedside, reviewing the patient's pertinent medical records, discussion
with consultants, review of old EKGs and review of pertinent medical records. This time with separate from time utilized to perform the aforementioned documented procedures
ED Attending Note
<Alexandr Ortiz MD - Last Filed: 08/27/24 23:21>
ED Attending Note
Patient seen and examined by attending physician: Yes
I performed the substantive portion of visit, reviewed & personally made and approve the management plan that is documented in note by myself or ALINA.: Yes
ED Attending Note:
Patient is a 59-year-old male with history of A-fib on Eliquis, hypertension presenting to the emergency department with chest pain. Patient states for the past week he has been feeling intermittently lightheaded dizzy and short of breath. He has
been having chest pain. He is compliant with his medications for his A-fib. No fevers chills. No nausea or vomiting. No diarrhea. Otherwise has been in his usual state of health. EKG per my interpretation atrial fibrillation with RVR. Patient
blood pressure is normal. On exam patient is resting comfortably. His heart is irregularly irregular and tachycardic. His lungs are clear to auscultation bilaterally. He does appear well-hydrated.
Will check blood work and rate control. He is on Lopressor so we will start off with Lopressor.
Patient given Lopressor without response. About 30 minutes later patient was given diltiazem. About 15 to 20 minutes after diltiazem patient became lightheaded dizzy. He became bradycardic to the 50s and hypotensive with systolics in the 70s. He
was diaphoretic. Pads were placed on patient. He was in Trendelenburg and receiving IV fluids we did obtain an EKG which did show sinus and PACs. Patient was given atropine after discussion with cardiology. He did not have a great response to
this. . His heart rate stayed in the 50s but his blood pressure remained low in the 80s. We did trial calcium gluconate with some response. Repeat EKGs were obtained which per my interpretation were normal sinus rhythm and junctional. It does
not appear that he is in a third-degree block. He then started a vagal with nausea and started to have bowel movements Given that he is having ongoing hypotension with significant symptoms epinephrine drip was started. He did have great response
to it. Shortly after the epi drip he did start to feel much better. He denied chest pain during this episode. Patient will need admission.
-
Portions of this chart may have been created with voice recognition software.� Occasional wrong word or��sound alike� substitutions may have occurred due to the inherent limitations of voice recognition software.
Discharge Plan
Departure
Patient Disposition: Admit
Date of Disposition: 08/27/24
Time of Disposition: 23:49
Admit to: ICU
Presentation/result/management discussed w/ accepting MD/DO: Hospitalist
Condition: Critical
Covid-19: Not Applicable
Discharge Problem:
Atrial fibrillation with RVR
Interventions
Interventions:
*Risk Screen - Suicide Last Done: 08/27/24 21:29
*General Assessment Last Done: 08/27/24 21:29
*Neglect/Abuse Screening Last Done: 08/27/24 21:59
*ED COVID-19 Vaccine History Last Done: 08/27/24 21:59
ED- Cardiac Assessment Last Done: 08/27/24 21:58
ED-Psychological Assessment Last Done: 08/27/24 21:58
[2024-08-27] MEDS: ADRENALIN 250 IV (23:23)
[2024-08-28] VITALS (21 sets, daily range): BP systolic 107–145; BP diastolic 66–100; BMI 35.3; BMI 35.1
--- NOTE | 2024-08-28 00:02 | HPS.HSE ---
Family Physician
-
Family Physician: Fe Jackson PA-C
Chief Complaint
-
Chest pain
History of Present Illness
This is a 59-year-old was past medical history of atrial fibrillation, hypertension, hyperlipidemia, insulin-dependent diabetes who presents to the emergency department with chest pain.
Patient reports that for about 1 week he has been having palpitations which he considers to be anxiety. He has been taking extra doses of buspirone as well as took a dose of cannabinoid Gummies. Today he noticed he was sweaty. He reported some
shortness of breath. He denies having nehemiah chest pain. He did not feel dizzy or lightheaded. He had no numbness or tingling. There was no loss of consciousness at any time. He denied any recent changes to his medications. He reports
compliance completely with Eliquis.
Patient had a complicated ED course. He arrived with chest pain and was found to be in rapid atrial fibrillation. ECG showing rate of 145. Patient initially treated with metoprolol IV without much response. He was then started on IV diltiazem.
After about 15 minutes of diltiazem he became lightheaded and dizzy. He was bradycardic to the 50s and hypotensive to 70 systolic as well as diaphoretic. ECG showed apparent junctional rhythm with PACs. Patient was given atropine 0.5 x 2 without
response. His heart rate stayed in the 50s and his blood pressure remained low in the 80s. He was given calcium gluconate. Repeat ECG shows sinus bradycardia. No evidence of complete heart block. He had a vagal episode with nausea and started
to have a bowel movement. He remained bradycardic and was started on epinephrine. His current rhythm is sinus in the 60s beat per minute range. He currently denies chest pain.
Is labs showed a normal CBC. Troponin was 0.012. BNP was 900. His chemistry shows a potassium of 4.4 and is otherwise unremarkable.
Medical History
Past Medical History
Past Medical History: Reports Arrhythmia (Proximal atrial fibrillation), GERD, HTN, Hypercholesterolemia and IDDM
Past Surgical History: Reports Appendectomy
Social History
Tobacco: Non-smoker
Alcohol: Occasional
Drug: None
Personal:
Living: Alone
Employment: Employed
Family History
Family History: Early CAD
Allergies / Home Medications
Allergies reflects when Allergies were last updated in [employer].
Home Medications with original date entered in [employer]
Allergy/Medication List:
Allergies
Allergy/AdvReac Type Severity Reaction Status Date / Time
liraglutide [From Victoza] Allergy Unknown Verified 08/27/24 21:29
semaglutide [From Ozempic] Allergy Nausea / Verified 08/27/24 21:29
Vomiting
prochlorperazine AdvReac Unknown Verified 08/27/24 21:29
[From Compazine]
Home Medications
apixaban 5 mg tablet (Eliquis) 5 mg PO DAILY 06/09/22
atorvastatin 20 mg tablet 20 mg PO HS 06/09/22
buspirone 10 mg tablet 20 mg PO BID 06/09/22
duloxetine 60 mg capsule,delayed release 60 mg PO BID 06/09/22
empagliflozin 10 mg tablet (Jardiance) 10 mg PO DAILY 06/09/22
ergocalciferol (vitamin D2) 1,250 mcg (50,000 unit) capsule 1,250 mcg PO DAILY 06/09/22
insulin aspart U-100 100 unit/mL (3 mL) subcutaneous pen 24 - 36 unit SC AC 06/09/22
insulin degludec 100 unit/mL (3 mL) subcutaneous pen (Tresiba FlexTouch U-100 insulin) 100 unit SC 06/09/22
lisinopril 5 mg tablet 5 mg PO DAILY 06/09/22
metoprolol succinate 50 mg tablet,extended release 24 hr 50 mg PO DAILY 06/09/22
pantoprazole 40 mg tablet,delayed release 40 mg PO DAILY 06/09/22
trazodone 150 mg tablet 300 mg PO HS 07/12/22
pantoprazole 40 mg tablet,delayed release (Protonix) 40 mg PO DAILY Gastrointestinal issue #30 tabs 03/07/24
Review of Systems
-
History Source: Patient
Constitutional: Reports No Symptoms
EENT: Reports No Symptoms
Respiratory: Reports No Symptoms
Cardiac: Reports Chest Pain and Palpitations
Abdomen/GI: Reports Nausea
: Reports No Symptoms
Musculoskeletal: Reports No Symptoms
Skin: Reports No Symptoms
Neurological: Reports No Symptoms
Endocrine: Reports No Symptoms
Hematologic/Lymphatic: Reports No Symptoms
Psych: Reports No Symptoms
Physical Exam
Vital Signs
Vital Signs
Temp Pulse Resp BP Pulse Ox
98.0 F 77 18 139/79 93
08/27/24 21:29 08/28/24 00:00 08/28/24 00:00 08/28/24 00:00 08/28/24 00:00
Physical Exam
General: Well Developed, Well Nourished and Appears in Distress
HEENT: NormoCephalic, Anicteric, Moist mucous membranes and Atraumatic
Respiratory: Clear
Cardiac: S1/S2, Regular Rhythm and Bradycardia
GI: Soft, Non Tender, Non Distended and Normal Bowel Sounds
Rectal: Deferred by Provider
Genito-urinary: Deferred by me
Musculoskeletal: No Clubbing, No Cyanosis and No Edema
Skin: Warm
Neuro: AO x 3
Hematologic/Lymphatic: No Lymphadenopathy
Psych: Calm
Laboratory Results
-
08/27/24 21:54
08/27/24 21:54
Laboratory Results
Total Bilirubin 0.7 mg/dl (0.2-1.3) 08/27/24 21:54
AST 38 U/L (17-59) 08/27/24 21:54
ALT 21 U/L (0-50) 08/27/24 21:54
Alkaline Phosphatase 70 U/L (38-126) 08/27/24 21:54
Troponin I < 0.012 ng/ml 08/27/24 21:54
Data Reviewed
-
Medical Tests (Nuc Med, Echo, EKG etc): Image Personally Visualized and interpreted
Lab Data: Labs Reviewed by me
Old Records: Reviewed
Impression/Plan
-
IMPRESSION:
PLAN:
1. Symptomatic Bradycardia -patient arriving in atrial fibrillation with rapid response, ECG showing atrial flutter with variable conduction and no acute ischemic changes. His troponin was negative. He developed a junctional rhythm with PACs
status post intervention. He was initially given 5 mg of IV Lopressor without significant change to his supraventricular tachycardia, he then received 20 mg of IV diltiazem. After a few minutes he developed a junctional rhythm with rates in the
50s and became clearly diaphoretic nauseous and hypotensive. He was given IV fluids and present Trendelenburg and the escape rhythm was noticed. Patient given atropine without any improvement. He was thus placed on a epinephrine drip. He is
currently in a sinus rhythm in the 80s. Suspect diltiazem induced or combination elizabeth agent induced sinus blockade in setting of likely refractory sinus node.
- admit to icu
- titrate epinephrine to pulse > 60 and MAP > 65
- may d/c epinephrine if meeting criteria
- no diltiazem
- cardiology consult
2. AFIB RVR - Aflutter variable conduction at 145 on admission. Currently sinus rhythm on epinephrine
- titrate epinephrine to off as tolerated
- continue apixaban, patient reports complete compliance
- per cards, trial of lopressor if recurrent pAFIB
- restart metoprolol in am once off the gtt, currently held off
- cardiology consulted.
3. DM II - on 75/25 60 bid and trulicity
- sliding scale acsh
- 70/30 40 units bid
4. GERD -
- continue ppi
5. HTN
- holding lisinopril and metoprolol for now
Depression -
- continue buspirone
- off duloxetine for 30 days, holding
DVT PPX - on apixaban
Code status - full code
[2024-08-28 02:14] LABS: Troponin I < 0.012 ng/ml
--- NOTE | 2024-08-28 02:34 | PTCARENOTE ---
Received patient from ED AAOx3, following commands, denying pain. Normal sinus in the 70s-80s with PACs. BP stable, 120s-130s/80s-90s. Normothermic, no edema, palpable radial and pedal pulses bilaterally. 97% on room air, lung sounds clear. Abdomen
soft, round, nontender, positive bowel sounds. Diarrhea and vomiting prior to coming to ICU, now patient reports feeling better. Skin intact, tattoos throughout extremities and torso. 2 PIVs patent, WNL. EKG done, trop sent, CHG bath done. Family at
bedside updated. Call shaffer within reach.
[2024-08-28 04:35] LABS: Hemoglobin 14.5 g/dL (13.0-18.0); Mean Corp Hgb Conc. 36.3 g/dL (33.0-37.0); Mean Corpuscular Hgb 29.1 pg (27.0-31.0); Mean Corpuscular Volume 80.3 fL (80.0-94.0); Mean Platelet Volume 9.4 fL (7.4-10.4); Platelet Count 181 10^3/uL (130-400); Red Blood Cell Count 4.98 10^6/uL (4.70-6.10); Red Cell Dist. Width 13.2 % (11.5-14.5); White Blood Cell Count 10.3 10^3/uL (4.8-10.8)
[2024-08-28 04:45] LABS: INR 1.14; PT 14.5 Sec (11.4-14.6)
[2024-08-28 04:46] LABS: APTT 28.3 Sec (23.4-35.0)
[2024-08-28 04:51] LABS: Blood Urea Nitrogen 24 mg/dl (9-20); Calcium 9.3 mg/dl (8.4-10.2); Carbon Dioxide 18 mmol/L (22-30); Chloride 107 mmol/L (98-107); Estimated Creatinine Clearance 88 ml/min; Glucose 225 mg/dl (70-99); Magnesium 1.7 mg/dl (1.6-2.3); Phosphorus 3.4 mg/dl (2.5-4.5); Potassium 5.1 mmol/L (3.5-5.1); Sodium 138 mmol/L (135-145); eGFR > 60.00
[2024-08-28] MEDS: ZOFRAN 4 MG IV (06:35)
--- NOTE | 2024-08-28 06:38 | PTCARENOTE ---
Patient threw up 3 times in the bathroom, bile colored. Zofran given.
--- NOTE | 2024-08-28 06:49 | W.PN.HOSP.TC ---
Today's Communication/Plan
-
f/w cardiology recommendations
Will verify meds, to d/w pharmacy
c/w insulin treatment, do some adjustments. HGB A1C 9.1
Assessment / Plan
Assessment / Plan
Physical Exam
General: Well Developed, Well Nourished and Appears in Distress, obese
HEENT: Normocephalic, Anicteric, Moist mucous membranes and Atraumatic
Respiratory: Clear
Cardiac: S1/S2, Regular Rhythm and Bradycardia
GI: Soft, Non Tender, Non Distended and Normal Bowel Sounds
Rectal: no bleeding
Genito-urinary: no Jordan
Musculoskeletal: No Clubbing, No Cyanosis and No Edema
Skin: Warm, tattoos
Neuro: AO x 3, he followed commands
Psych: Calm
Per history : Symptomatic Bradycardia -patient arriving in atrial fibrillation with rapid response, ECG showing atrial flutter with variable conduction and no acute ischemic changes. His troponin was negative. He developed a junctional rhythm with
PACs status post intervention. He was initially given 5 mg of IV Lopressor without significant change to his supraventricular tachycardia, he then received 20 mg of IV diltiazem. After a few minutes he developed a junctional rhythm with rates in
the 50s and became clearly diaphoretic nauseous and hypotensive. He was given IV fluids and present Trendelenburg and the escape rhythm was noticed. Patient given atropine without any improvement. He was thus placed on a epinephrine drip. He is
currently in a sinus rhythm in the 80s. Suspect diltiazem induced or combination elizabeth agent induced sinus blockade in setting of likely refractory sinus node.
-
Currently he is in SR , HR around 80s
Appreciate cardiology input
# History of AFIB RVR - Aflutter variable conduction at 145 on admission.
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
Negative troponin
# . DM II - on 75/25 60 bid and Trulicity
- sliding scale acsh
- 70/30 40 units bid
# Chronic diarrhea from DM meds
# GERD -
- continue ppi
# Primary HTN
- holding lisinopril and metoprolol for now
# Depression -
Mood is cooperative
- continue buspirone
- off duloxetine for 30 days, holding
DVT PPX - on apixaban
Code status - full code
Total time spent to see the patient, examine the patient on the floor, review data and lab results, discuss treatment plan with patient, nursing staff around 55 minutes
Anticipated Discharge: 24 - 48 hours
Subjective/Interval History
-
Date of Service: August 28, 2024
No chest pain
Has nausea
He feels unwell due to being in hospital and chronic diarrhea , GI problems
no sob noted while talking, pleasant
Objective Data
-
Labs:
Laboratory Results
08/27/24 08/28/24
21:54 04:25
WBC 9.7 10.3
Hgb 15.7 14.5
Hct 42.9 40.0
Plt Count 197 181
PT 14.5
INR 1.14
APTT 28.3
Sodium 139 138
Potassium 4.4 5.1
Chloride 105 107
Carbon Dioxide 19 L 18 L
BUN 20 24 H
Creatinine 1.1 1.2
Glucose 204 H 225 H
Calcium 9.8 9.3
Total Bilirubin 0.7
AST 38
ALT 21
Alkaline Phosphatase 70
Vital Signs:
Vital Signs
Temp Pulse Resp BP Pulse Ox
98.1 F 79 19 129/89 95
08/28/24 02:38 08/28/24 06:00 08/28/24 06:00 08/28/24 04:00 08/28/24 06:00
[2024-08-28 07:18] LABS: Troponin I < 0.012 ng/ml
--- NOTE | 2024-08-28 07:28 | CON.INTV ---
Consultation
Consultation Request
Date/Time Consultation Requested: 08/28/24
Date/Time Consultation Performed: 08/28/24
Performing Provider: Soo
Reason for Consultation: Arrhythmia
Medical History
-
History of Present Illness:
Patient is a 59-year-old male with previous history of atrial fibrillation, hypertension, insulin-dependent diabetes presenting to the emergency room with chest pain. He notes that he had had palpitations for about 1 week, does not follow regularly
with cardiology. Day prior to arrival he noticed more diaphoresis, shortness of breath. In the ER patient was found to be in rapid A-fib with RVR, heart rate 145. He was treated with IV metoprolol and 20 mg IV diltiazem. Developed bradycardia
into the 50s with systolic pressure in the 70s. Given atropine x 2 doses. Placed on epi drip and admitted to ICU.
.
Past Medical History
Past Medical History: Other (see list below)
Social History
Tobacco: Former Smoker (30 pack years, quit 18 years ago)
Alcohol: None
Drug: None
Allergies / Home Medications
Allergies
Allergy/AdvReac Type Severity Reaction Status Date / Time
liraglutide [From Victoza] Allergy Unknown Verified 08/27/24 21:29
semaglutide [From Ozempic] Allergy Nausea / Verified 08/27/24 21:29
Vomiting
prochlorperazine AdvReac Unknown Verified 08/27/24 21:29
[From Compazine]
Home Medications
�Medication �Instructions �Recorded �Confirmed �Last Taken �Type
apixaban 5 mg tablet (Eliquis) 5 mg PO DAILY 06/09/22 06/09/22 Unknown History
atorvastatin 20 mg tablet 20 mg PO HS 06/09/22 06/09/22 Unknown History
buspirone 10 mg tablet 20 mg PO BID 06/09/22 06/09/22 Unknown History
duloxetine 60 mg capsule,delayed 60 mg PO BID 06/09/22 06/09/22 Unknown History
release
empagliflozin 10 mg tablet 10 mg PO DAILY 06/09/22 06/09/22 Unknown History
(Jardiance)
ergocalciferol (vitamin D2) 1,250 1,250 mcg PO DAILY 06/09/22 06/09/22 Unknown History
mcg (50,000 unit) capsule
insulin aspart U-100 100 unit/mL 24 - 36 unit SC AC 06/09/22 06/09/22 Unknown History
(3 mL) subcutaneous pen
insulin degludec 100 unit/mL (3 100 unit SC HS 06/09/22 06/09/22 Unknown History
mL) subcutaneous pen (Tresiba
FlexTouch U-100 insulin)
lisinopril 5 mg tablet 5 mg PO DAILY 06/09/22 06/09/22 Unknown History
metoprolol succinate 50 mg 50 mg PO DAILY 06/09/22 06/09/22 Unknown History
tablet,extended release 24 hr
pantoprazole 40 mg tablet,delayed 40 mg PO DAILY 06/09/22 06/09/22 Unknown History
release
trazodone 150 mg tablet 300 mg PO HS 06/09/22 06/09/22 Unknown History
pantoprazole 40 mg tablet,delayed 40 mg PO DAILY [facility] 03/07/24 Unknown Rx
release (Protonix) issue #30 tabs
Review of Systems
-
History Source: Patient
All other systems: Negative unless noted
Vitals / Labs / Diagnostic Testing
Vital Signs
Temp Pulse Resp BP Pulse Ox
98.1 F 79 19 129/89 95
08/28/24 02:38 08/28/24 06:00 08/28/24 06:00 08/28/24 04:00 08/28/24 06:00
Lab Data
08/28/24 04:25
08/28/24 04:25
Laboratory Results
08/28/24
04:25
PT 14.5
INR 1.14
APTT 28.3
Diagnostic Testing:
Physical Exam
-
HEENT: Normocephalic, Anicteric and Moist Mucous Membranes
Cardiovascular: S1/S2 and Regular Rhythm
Respiratory: Clear and Non-Labored Respirations
GI: Soft, Non Distended and Non Tender
Neurology: Awake, Alert, Oriented and No Motor Deficits
Skin: Warm, Dry and Good Color
General: Comfortable and Other (NAD)
Assessment
-
Patient is a 59-year-old male with previous history of atrial fibrillation, hypertension, insulin-dependent diabetes presenting to the emergency room with chest pain. He notes that he had had palpitations for about 1 week, does not follow regularly
with cardiology. Day prior to arrival he noticed more diaphoresis, shortness of breath. In the ER patient was found to be in rapid A-fib with RVR, heart rate 145. He was treated with IV metoprolol and 20 mg IV diltiazem. Developed bradycardia
into the 50s with systolic pressure in the 70s. Given atropine x 2 doses. Placed on epi drip and admitted to ICU.
Afib w/ RVR
Hypertensive urgency, BP 170s
Bradycardia while on cardizem
Hyperglycemia
Conditions present [facility]
Atrial fibrillation
HTN
IDDM, type 2
Appendectomy
Right leg surgery
Facial reconstruction
Former smoker
Anxiety/depression
Obesity, BMI 35--on ozempic previously
XU not on CPAP
Former smoker, 30 pack years, quit 18 years ago
Plan
No current signs of metabolic encephalopathy or MS changes/following commands
Psychiatric history noted above including anxiety/depression, takes buspar/duloxetine, can resume
Denies pain at this time.
Pain/sedation: PRN
RASS goals: 0
Hemodynamically stable, not requiring pressors.
Cardiac history reviewed-AFib on Eliquis, HTN
No prior ECHO for review
Resume home meds with adjustments
Cards eval for further management
Monitor on telemetry
Oxygen needs: stable on RA
History of XU not on CPAP many years ago
Former smoker 30pack/years, quit 18 years ago, +fam hx of lung cancer (father 55yo)
Supplemental O2 as indicated to maintain sats > 89%
CXR/CT reviewed indicating NAD
Can follow as OP for further management, placed in chart
Advance diet as tolerated
Mash Filter Cloth Changer recommendations
Aspiration precautions, HOB > 30 degrees
GI prophylaxis if indicated
Creat at baseline, no history of renal disease
Void trials
Follow urine output, critical I/Os
Replete electrolytes as needed
No signs/symptoms suspicious for infectious etiology at this time
Observe off antibiotics for now
Fever trend, WBC count
CBC stable, no signs of bleeding or coagulopathy.
DVT prophylaxis as assessed based on risk, including mechanical SCDs
Can transfuse if indicated for Hb <7, plt < 10
INR WNL
No prior h/o thyroid disease
H/o diabetes, can continue on home meds, SS for coverage
HbA1c 9.1, poor control
Consult DM [employer] for further management
Can transfer out of ICU to IVU if ok with team, we will sign off upon transfer.
Diagnostic Data
Chest X-Ray: 08/28/24- low lung volumes but overall clear
CT Scan:
Echo:
PFT's:
Reports and relevant images were personally reviewed.
-----
Critical Care time 61 mins -- The patient is admitted for acute critical illness for the treatment of vital organ failure and/or prevention of further life-threatening conditions. Total care includes time spent in review of history, physical exam,
medications, hemodynamic/ventilator parameters, laboratory data, imaging and discussion with house staff, pharmacy, respiratory therapy, employee welfare manager, and nursing.
--- NOTE | 2024-08-28 07:45 | PTCARENOTE ---
Assumed care of patient. Pt rec'd A&Ox3. Pleasant. Denies pain. Mild nausea...much improved since receiving zofran this am. CASANOVA's. S1 S2 reg w/ NSR on monitor. +PP. No edema. On R/A...sats 97%. Lungs clear. Abdomen obese...+BS. Voids in
bathroom. Skin WNL. 20P RH capped. 20P LH capped. VS documented. 1800 yue ada diet. Call shaffer within reach. Will continue to monitor closely.
[2024-08-28 08:03] LABS: Glucose - Point of Care 204 mg/dl (70-99)
[2024-08-28] MEDS: ELIQUIS 5 MG PO ×2 (08:13→20:14)
[2024-08-28] MEDS: BUSPAR 20 MG PO ×2 (08:13→20:13)
[2024-08-28] MEDS: FARXIGA PO (08:14)
[2024-08-28] MEDS: NOVOLOG FLEXPEN-MODERATE RESISTANCE 3 UNITS SC (08:15)
[2024-08-28] MEDS: NOVOLOG MIX 70/30 FLEXPEN 40 UNITS SC ×2 (08:15→17:14)
[2024-08-28 08:22] LABS: Glycohemoglobin (HgbA1c) 9.1 % (4.0-5.6)
--- NOTE | 2024-08-28 09:10 | CON.CAR ---
Addendum entered and electronically signed by Ronald Nina MD 08/28/24 11:46:
I saw and examined the patient.
The TRAFFIC CLERK's note was reviewed and I agree with the note.
Comment:
Recurrent PAF
Medication induced sinus node dysfxn with good junctional escape (IV metoprolol/IV dilt)
Obesity BMI 35
HTN
DM
Needs aggressive AFib risk factor modification => I reviewed with him exercise, weight loss, BP control, sleep apnea eval/treatment, minimize ETOH (he denies any signif ETOH)
Will increase metoprolol for now and I reviewed availability of ablation. I also discussed AAD therapy.
He reports recent stress test with good results
Will check echo
Likely home if tolerates PO metoprolol now and followup wiht me in the office in several weeks
Original Note:
Consultation
Consultation Request
Date/Time Consultation Requested: 08/28/2024 01:00
Date/Time Consultation Performed: 08/28/2024 09:00
Requesting Provider: Dr. Chopra
Performing Provider: JOSUE Henriquez for Dr. Nina
Reason for Consultation: Atrial fibrillation, bradycardia
Medical History
-
Chief Complaint: Racing heart
History of Present Illness:
Lenny Young is a 59-year-old male with paroxysmal atrial fibrillation (on apixaban), hypertension, type 2 diabetes mellitus, and obesity who presented with palpitations and elevated heart rate. He endorsed associated chest tightness. In the
emergency department, he was found to be in atrial fibrillation with right ventricular response. In the emergency department he was given 5 mg of intravenous Lopressor. It did not have any effect on his elevated heart rate. He was then given a
diltiazem bolus with anticipation of starting a drip. After 15 minutes, he became lightheaded and dizzy. Heart rate went into the 50s and a junctional rhythm with PACs. He was hypotensive. He was given atropine x 2 without response to heart rate
nor blood pressure. He then had a vagal episode and was started on epinephrine. He is currently in sinus rhythm and not requiring epinephrine. When he had his elevated heart rate, he endorsed midsternal anterior chest pain. This resolved with
heart rate control.
Past Medical History
Past Medical History: Arrhythmias (Paroxysmal atrial fibrillation [on apixaban]), HTN and NIDDM
Past Surgical History: Appendectomy
Social History
Tobacco: Non-Smoker
Alcohol: Occasional
Personal:
Employment: Employed
Allergies / Home Medications
Allergy/AdvReac Type Severity Reaction Status Date / Time
liraglutide [From Victoza] Allergy Unknown Verified 08/27/24 21:29
semaglutide [From Ozempic] Allergy Nausea / Verified 08/27/24 21:29
Vomiting
prochlorperazine AdvReac Unknown Verified 08/27/24 21:29
[From Compazine]
�Medication �Instructions �Recorded �Confirmed �Type
apixaban 5 mg tablet (Eliquis) 5 mg PO DAILY 06/09/22 06/09/22 History
atorvastatin 20 mg tablet 20 mg PO HS 06/09/22 06/09/22 History
buspirone 10 mg tablet 20 mg PO BID 06/09/22 06/09/22 History
duloxetine 60 mg capsule,delayed 60 mg PO BID 06/09/22 06/09/22 History
release
empagliflozin 10 mg tablet 10 mg PO DAILY 06/09/22 06/09/22 History
(Jardiance)
ergocalciferol (vitamin D2) 1,250 1,250 mcg PO DAILY 06/09/22 06/09/22 History
mcg (50,000 unit) capsule
insulin aspart U-100 100 unit/mL 24 - 36 unit SC AC 06/09/22 06/09/22 History
(3 mL) subcutaneous pen
insulin degludec 100 unit/mL (3 100 unit SC HS 06/09/22 06/09/22 History
mL) subcutaneous pen (Tresiba
FlexTouch U-100 insulin)
lisinopril 5 mg tablet 5 mg PO DAILY 06/09/22 06/09/22 History
metoprolol succinate 50 mg 50 mg PO DAILY 06/09/22 06/09/22 History
tablet,extended release 24 hr
pantoprazole 40 mg tablet,delayed 40 mg PO DAILY 06/09/22 06/09/22 History
release
trazodone 150 mg tablet 300 mg PO HS 06/09/22 06/09/22 History
pantoprazole 40 mg tablet,delayed 40 mg PO DAILY [facility] 03/07/24 Rx
release (Protonix) issue #30 tabs
Review of Systems
-
History Source: Patient
All other systems: Negative unless noted
Constitutional: No Symptoms
EENT: No Symptoms
Respiratory: No Symptoms
Cardiac: No Symptoms
Abdomen/GI: No Symptoms
: No Symptoms
Musculoskeletal: No Symptoms
Skin: No Symptoms
Neurological: No Symptoms
Endocrine: No Symptoms
Hematologic/Lymphatic: No Symptoms
Physical Exam
Vital Signs
Temp Pulse Resp BP Pulse Ox
98.5 F 80 19 130/87 94
08/28/24 07:45 08/28/24 08:30 08/28/24 08:30 08/28/24 08:00 08/28/24 08:30
Lab Results
08/28/24 04:25
08/28/24 04:25
Troponin I < 0.012 ng/ml 08/28/24 06:41
Ggd-G-Nnxojfljiyy Pept 914 pg/ml 08/27/24 21:54
Physical Exam
General: Well Developed, Well Nourished, No Apparent Distress and Comfortable
HEENT: Normocephalic, Anicteric and Moist Mucous Membranes
Respiratory: Clear and Non Labored Respirations
Cardiac: S1/S2 and Regular Rhythm
Breast: Deferred by me
GI: Soft, Non Tender, Non Distended and Normal Bowel Sounds
Rectal: Deferred by Provider
Genito-urinary: No Costovertebral Tender
Musculoskeletal: No Clubbing, No Cyanosis and No Edema
Skin: Warm
Neuro: AO x 3
Hematologic/Lymphatic: No Lymphadenopathy
Psych: Calm
Impression / Plan
-
Sinus bradycardia with junctional escape
-After AV elizabeth agents
-EKG this morning, normal sinus rhythm rate 82
Atrial fibrillation, new
-Resume metoprolol succinate and increased dosing, he reports taking metoprolol succinate 50 twice daily, increased to 100 mg twice daily
-Oral Anticoagulation: Apixaban 5 mg twice daily
-[id number]: score at least 2 (HTN, Diabetes Mellitus)
-Echocardiogram today
Chest pain, resolved
-EKG without acute ischemia
-Troponin <0.012 x 3, canceled further troponin
Hypertension, hold lisinopril, metoprolol succinate as above
Vomiting and diarrhea, per primary
Type 2 diabetes mellitus, uncontrolled, Hgba1c 9.1%, per primary
Former smoker, continue cessation recommended
Obesity, BMI 35, he would benefit from weight loss
Data Reviewed
-
EKG: Report Reviewed by me (As above)
Radiology: Report Reviewed by me (CXR: No acute disease of the chest)
Labs: Labs Reviewed by me
Old Records: Requested (ETT from [facility])
[2024-08-28] MEDS: TOPROL XL 100 MG PO ×2 (10:25→20:13)
--- NOTE | 2024-08-28 12:06 | CM ---
CM attempted bedside visit for IA- off unit
CM consult noted for advanced directives
[2024-08-28] MEDS: NOVOLOG FLEXPEN-MODERATE RESISTANCE SC ×2 (12:14→17:14)
--- NOTE | 2024-08-28 12:15 | PTCARENOTE ---
Cardiology updated that pt's HR...it is between 80-128...NSR to afib. Pt able to feel fluttering chest...no other symptoms. Orders rec'd.
[2024-08-28 12:24] LABS: Glucose - Point of Care 120 mg/dl (70-99)
[2024-08-28] MEDS: TAMBOCOR 100 MG PO ×2 (12:56→22:13)
--- NOTE | 2024-08-28 15:11 | PTCARENOTE ---
Report called to Wood CHAVEZ in IVU. Pt to transfer to Room 2248.
[2024-08-28 17:13] LABS: Glucose - Point of Care 126 mg/dl (70-99)
--- NOTE | 2024-08-28 17:42 | PTCARENOTE ---
Rec'd pt from ICU on TELE monitor in AFIB with elevated HR in the 130's (cardiology Darline fitzgerald), VSS, and pt AAO*3. Pt denied any pain or discomfort and not symptomatic of AFIB or elevated HR. Pt resting in bed with call shaffer in reach.
[2024-08-28] MEDS: FLUSH (NSS) 1 FLUSH IV (20:14)
[2024-08-28 22:05] LABS: Glucose - Point of Care 221 mg/dl (70-99)
[2024-08-28] MEDS: LIPITOR 20 MG PO (22:13)
[2024-08-28] MEDS: DESYREL 300 MG PO (22:13)
[2024-08-29] VITALS (10 sets, daily range): BP systolic 103–126; BP diastolic 75–99; BMI 34.3
--- NOTE | 2024-08-29 00:02 | PTCARENOTE ---
Received patient at change of shift. Patient awake, alert, and oriented in bed. BP 145/98, A-Fib 140s-150s, 95% on room air. Discussed care plan for the evening. Patient verbalized understanding. Call shaffer within reach.
--- NOTE | 2024-08-29 00:02 | PTCARENOTE ---
At 0 patient called RN because 'not feeling well.' Pt stated he 'felt off' and it was 'like what he was feeling the two weeks before he came in.' EKG obtained and results sent to Dr. Nina-- interpreted EKG as 'sinus rhythm with supraventricular
bigeminy.' RN to continue flecainide and metoprolol. Discussed with patient. Patient verbalized to notify care team with any changes. Call shaffer within reach.
[2024-08-29 04:58] LABS: Blood Urea Nitrogen 24 mg/dl (9-20); Carbon Dioxide 22 mmol/L (22-30); Chloride 105 mmol/L (98-107); Estimated Creatinine Clearance 87 ml/min; Glucose 167 mg/dl (70-99); Potassium 4.2 mmol/L (3.5-5.1); Sodium 139 mmol/L (135-145); eGFR > 60.00
--- NOTE | 2024-08-29 06:34 | W.PN.HOSP.TC ---
Addendum entered and electronically signed by Rebeca Spence MD 08/30/24 08:57:
dc is held to do flecainide loading, d/w lamp shade sewer
Total time spent to see the patient, examine the patient on the floor, review data and lab results, discuss treatment plan with patient, nursing staff around 55 minutes
Original Note:
Today's Communication/Plan
-
order echo
f/w cardiology recommendation
dc planning
Assessment / Plan
Assessment / Plan
Physical Exam
General: Well Developed, Well Nourished and Appears in Distress, obese
HEENT: Normocephalic, Anicteric, Moist mucous membranes and Atraumatic
Respiratory: Clear
Cardiac: S1/S2, Regular Rhythm
GI: Soft, Non Tender, Non Distended and Normal Bowel Sounds
Rectal: no bleeding
Genito-urinary: no Jordan
Musculoskeletal: No Clubbing, No Cyanosis and No Edema
Skin: Warm, tattoos
Neuro: AO x 3, he followed commands
Psych: Calm
Per history : Symptomatic Bradycardia -patient arriving in atrial fibrillation with rapid response, ECG showing atrial flutter with variable conduction and no acute ischemic changes. His troponin was negative. He developed a junctional rhythm with
PACs status post intervention. He was initially given 5 mg of IV Lopressor without significant change to his supraventricular tachycardia, he then received 20 mg of IV diltiazem. After a few minutes he developed a junctional rhythm with rates in
the 50s and became clearly diaphoretic nauseous and hypotensive. He was given IV fluids and present Trendelenburg and the escape rhythm was noticed. Patient given atropine without any improvement. He was thus placed on a epinephrine drip. He is
currently in a sinus rhythm in the 80s. Suspect diltiazem induced or combination elizabeth agent induced sinus blockade in setting of likely refractory sinus node.
-
Currently he is in SR , HR around 80s
Order echo
Appreciate cardiology input
# Paroxysmal AFIB RVR -
Now in SR, started on flecainide with Toprol.
No chest pain
Negative troponin
# . DM II - on 75/25 60 bid and Trulicity
- sliding scale acsh
- 70/30 40 units bid
HGB A1C 9.1
# Chronic diarrhea from DM meds
# GERD -
- continue ppi
# Primary HTN
- Resume lisinopril
c/w metoprolol
# Depression -
Mood is cooperative
- continue buspirone and trazodone
- off duloxetine for 30 days, holding
DVT PPX - on apixaban
Code status - full code
Total dc time spent to see the patient, examine the patient on the floor, review data and lab results, discuss discharge plan with patient, nursing staff around 65 minutes
Anticipated Discharge: Within 24 hours
Subjective/Interval History
-
Date of Service: August 29, 2024
No chest pain
Slept well
No sob
Objective Data
-
Labs:
Laboratory Results
08/29/24
04:03
Sodium 139
Potassium 4.2
Chloride 105
Carbon Dioxide 22
BUN 24 H
Creatinine 1.2
Glucose 167 H
Calcium 9.0
Vital Signs:
Vital Signs
Temp Pulse Resp BP Pulse Ox
98.1 F 76 20 111/82 96
08/29/24 03:58 08/29/24 06:00 08/29/24 03:58 08/29/24 03:58 08/29/24 03:58
I&O
08/27/24 08/28/24 08/29/24
06:59 06:59 06:59
Intake Total 480 / 480
Balance 480 / 480
[2024-08-29] MEDS: BUSPAR 20 MG PO ×2 (07:45→20:17)
[2024-08-29 07:46] LABS: Glucose - Point of Care 170 mg/dl (70-99)
[2024-08-29] MEDS: FARXIGA 10 MG PO (07:46)
[2024-08-29] MEDS: ELIQUIS 5 MG PO ×2 (07:46→20:18)
[2024-08-29] MEDS: TOPROL XL 100 MG PO ×2 (07:48→20:19)
[2024-08-29] MEDS: NOVOLOG FLEXPEN-MODERATE RESISTANCE 1 UNITS SC ×2 (07:48→12:26)
[2024-08-29] MEDS: NOVOLOG MIX 70/30 FLEXPEN 40 UNITS SC ×2 (07:49→17:36)
[2024-08-29] MEDS: TAMBOCOR 100 MG PO ×2 (08:44→20:18)
--- NOTE | 2024-08-29 09:25 | CM ---
Reviewed chart. Met with Mr. Young to review discharge plans. He states prior to admission he resides alone in an apartment with four steps to enter. He states prior to admission he was independent with ambulation and adls. He states he does
not have any DME in the home. He states he has a prescription plan and uses [facility]. Medical work-up in progress. The discharge plan is to return home when medically stable.
--- NOTE | 2024-08-29 09:55 | PTCARENOTE ---
Rec'd pt at change of shift on TELE monitor in AFIB/Aflutter but converted into NSR at 917. Pt denied any pain, discomfort, or anxiety. Pt verbalized understanding of new medications and care plan. Pt resting at bedside with call shaffer in reach.
[2024-08-29] MEDS: ZESTRIL 5 MG PO (09:58)
--- NOTE | 2024-08-29 10:22 | W.PN.CD ---
Today's Communication / Plan
-
Flec loading
Echo
Elective ablation is a good choice
Impression / Plan
-
Paroxysmal and atrial fibrillation and now typical atrial flutter (on Flec)
- Metoprolol ER 100 BID
- Flecainide 100 BID, may increase to 150 bid in future
- I will arrange ablation consult. He is a good ablation candidate
- Oral Anticoagulation: Apixaban 5 mg twice daily
- [id number]: score at least 2 (HTN, Diabetes Mellitus)
- Echocardiogram today
Sinus bradycardia with junctional escape
- improved
- Now just less than 2 sec conversion pauses
Chest pain, resolved
- EKG without acute ischemia
- Troponin <0.012 x 3, canceled further troponin
- He had an recent outpt stress at [facility] that showed no ischemia
Hypertension, hold lisinopril, metoprolol succinate as above
Vomiting and diarrhea, per primary
Type 2 diabetes mellitus, uncontrolled, Hgba1c 9.1%, per primary
Former smoker, continue cessation recommended
Obesity, BMI 35, he would benefit from weight loss
Subjective:
He feels well
Physical Exam
Vital Signs/Labs
Vital Signs
Temp Pulse Resp BP Pulse Ox
98.1 F 72 20 106/81 96
08/29/24 03:58 08/29/24 09:58 08/29/24 03:58 08/29/24 09:58 08/29/24 09:25
08/28/24 08/29/24 08/30/24
06:59 06:59 06:59
Actual Weight 117.2 kg 114.7 kg
08/28/24 04:25
08/29/24 04:03
PT 14.5 Sec (11.4-14.6) 08/28/24 04:25
INR 1.14 08/28/24 04:25
APTT 28.3 Sec (23.4-35.0) 08/28/24 04:25
Magnesium 1.7 mg/dl (1.6-2.3) 08/28/24 04:25
08/27/24
21:54
Rge-X-Uwjlermxzdp Pept 914
LAB Results
08/27/24 08/28/24 08/28/24
21:54 01:35 06:41
Troponin I < 0.012 < 0.012 < 0.012
08/28/24
12:45
Troponin I Cancelled
Physical Exam
Constitutional: No acute distress
EENT: Anicteric
Cardiovascular: Rhythm & rate is regular and Pedal edema is absent
Respiratory: Respiratory effort normal and Lungs clear to auscul.
GI: Soft and Distention absent
Neuro/Psych: Alert, Oriented and Motor deficits absent
Data Reviewed
-
Date of Service: August 29, 2024
[2024-08-29 11:55] LABS: Glucose - Point of Care 188 mg/dl (70-99)
[2024-08-29 17:18] LABS: Glucose - Point of Care 120 mg/dl (70-99)
[2024-08-29] MEDS: NOVOLOG FLEXPEN-MODERATE RESISTANCE SC (17:30)
[2024-08-29 21:40] LABS: Glucose - Point of Care 174 mg/dl (70-99)
--- NOTE | 2024-08-29 21:42 | PTCARENOTE ---
Pt remains in afib at this time. no complaints. HR ranging from 100-120s. 2L NC on overnight
[2024-08-29] MEDS: DESYREL 300 MG PO (22:19)
[2024-08-29] MEDS: LIPITOR 20 MG PO (22:19)
--- NOTE | 2024-08-29 22:41 | PTCARENOTE ---
Vital signs captured for dayshift on reed polisher
[2024-08-30 03:41] VITALS: BP 102/63
--- NOTE | 2024-08-30 06:32 | W.PN.HOSP.TC ---
Today's Communication/Plan
-
.
Assessment / Plan
Assessment / Plan
Physical Exam
General: Well Developed, Well Nourished and Appears in Distress, obese
HEENT: Normocephalic, Anicteric, Moist mucous membranes and Atraumatic
Respiratory: Clear
Cardiac: S1/S2, Regular Rhythm
GI: Soft, Non Tender, Non Distended and Normal Bowel Sounds
Rectal: no bleeding
Genito-urinary: no Jordan
Musculoskeletal: No Clubbing, No Cyanosis and No Edema
Skin: Warm, tattoos
Neuro: AO x 3, he followed commands
Psych: Calm
Per history : Symptomatic Bradycardia -patient arriving in atrial fibrillation with rapid response, ECG showing atrial flutter with variable conduction and no acute ischemic changes. His troponin was negative. He developed a junctional rhythm with
PACs status post intervention. He was initially given 5 mg of IV Lopressor without significant change to his supraventricular tachycardia, he then received 20 mg of IV diltiazem. After a few minutes he developed a junctional rhythm with rates in
the 50s and became clearly diaphoretic nauseous and hypotensive. He was given IV fluids and present Trendelenburg and the escape rhythm was noticed. Patient given atropine without any improvement. He was thus placed on a epinephrine drip. He is
currently in a sinus rhythm in the 80s. Suspect diltiazem induced or combination elizabeth agent induced sinus blockade in setting of likely refractory sinus node.
-
Currently he is in SR , HR around 80s
Order echo
Appreciate cardiology input
# Paroxysmal AFIB RVR -
Now in SR, started on flecainide with Toprol.
No chest pain
Negative troponin
# . DM II - on 75/25 60 bid and Trulicity
- sliding scale acsh
- 70/30 40 units bid
HGB A1C 9.1
# Chronic diarrhea from DM meds
No abd pain. No nausea, tolerating diet
# GERD -
- continue ppi
# Primary HTN
- Resume lisinopril
c/w metoprolol
# Depression -
Mood is cooperative
- continue buspirone and trazodone
- off duloxetine for 30 days, holding
DVT PPX - on apixaban
Code status - full code
Total dc time spent to see the patient, examine the patient on the floor, review data and lab results, discuss discharge plan with patient, nursing staff around 65 minutes
Anticipated Discharge: Today
Subjective/Interval History
-
Date of Service: August 30, 2024
No events over night
Objective Data
-
Vital Signs:
Vital Signs
Temp Pulse Resp BP Pulse Ox
98.1 F 76 18 102/63 98
08/30/24 03:41 08/30/24 03:41 08/30/24 03:41 08/30/24 03:41 08/30/24 03:41
I&O
08/28/24 08/29/24 08/30/24
06:59 06:59 06:59
Intake Total 480 / 480 240 / 240
Balance 480 / 480 240 / 240
[2024-08-30 07:27] VITALS: BP 94/65
[2024-08-30 07:29] LABS: Glucose - Point of Care 149 mg/dl (70-99)
[2024-08-30 08:10] VITALS: BP 92/60
[2024-08-30 08:12] VITALS: BP 81/62
[2024-08-30] MEDS: FARXIGA 10 MG PO (08:15)
[2024-08-30] MEDS: TAMBOCOR 100 MG PO (08:16)
[2024-08-30] MEDS: NOVOLOG FLEXPEN-MODERATE RESISTANCE SC (08:16)
[2024-08-30] MEDS: ELIQUIS 5 MG PO (08:16)
[2024-08-30] MEDS: BUSPAR 20 MG PO (08:16)
--- NOTE | 2024-08-30 09:08 | W.PN.CD ---
Addendum entered and electronically signed by Ronald Nina MD 08/30/24 09:15:
Note: QTc is overestimated by computer. No torsades or PVCs on tele. Ok to continue Flec.
Original Note:
Today's Communication / Plan
-
-
Stop lisinopril as BP on lower side
Use Metoprolol ER 100 BID for AFib and HTN
Continue Eliquis 5 BID; Flecainide 100 bid
OK for home
F/u with us has been arranged
Impression / Plan
-
Paroxysmal and atrial fibrillation and now typical atrial flutter (on Flec)
- Metoprolol ER 100 BID
- Flecainide 100 BID, may increase to 150 bid in future
- I will arrange ablation consult. He is a good ablation candidate
- Oral Anticoagulation: Apixaban 5 mg twice daily
- [id number]: score at least 2 (HTN, Diabetes Mellitus)
- Echocardiogram was fine
Resolved medication induced elva (2 IV meds close together), no need for pacer, doing well on metoprolol ER 100 BID with no significant bradycardia (so far)
Chest pain, resolved, EKG without acute ischemia, Troponin <0.012 x 3, canceled further troponin, He had an recent outpt stress at [facility] that showed no ischemia
Hypertension, hold lisinopril, metoprolol succinate as above
Type 2 diabetes mellitus, uncontrolled, Hgba1c 9.1%, per primary
Former smoker, continue cessation recommended
Obesity, BMI 35, he would benefit from weight loss
Subjective:
He feels well
Physical Exam
Vital Signs/Labs
Vital Signs
Temp Pulse Resp BP Pulse Ox
98.1 F 76 20 102/63 97
08/30/24 07:24 08/30/24 03:41 08/30/24 07:24 08/30/24 03:41 08/30/24 07:24
08/29/24 08/30/24 08/31/24
06:59 06:59 06:59
Actual Weight 114.7 kg
08/28/24 04:25
08/29/24 04:03
PT 14.5 Sec (11.4-14.6) 08/28/24 04:25
INR 1.14 08/28/24 04:25
APTT 28.3 Sec (23.4-35.0) 08/28/24 04:25
Magnesium 1.7 mg/dl (1.6-2.3) 08/28/24 04:25
08/27/24
21:54
Svq-Q-Aivsnkuoqmm Pept 914
LAB Results
08/27/24 08/28/24 08/28/24
21:54 01:35 06:41
Troponin I < 0.012 < 0.012 < 0.012
08/28/24
12:45
Troponin I Cancelled
Physical Exam
Constitutional: No acute distress
EENT: Anicteric
Cardiovascular: Rhythm & rate is regular and Pedal edema is absent
Respiratory: Respiratory effort normal and Lungs clear to auscul.
GI: Soft and Distention absent
Neuro/Psych: AO x 3
Data Reviewed
-
Date of Service: August 30, 2024
[2024-08-30] MEDS: NOVOLOG MIX 70/30 FLEXPEN 40 UNITS SC (09:29)
[2024-08-30 09:35] VITALS: BP 95/70
[2024-08-30] MEDS: TOPROL XL 100 MG PO (09:37)
[2024-08-30] MEDS: ZESTRIL PO (09:54)
[2024-08-30] MEDS: AFLURIA (36 mos+) 2024-2025 FORMULA 0.5 ML IM (11:01)
[2024-08-30 11:30] VITALS: BP 100/65
--- NOTE | 2024-08-30 13:31 | W.DCSUMMARY ---
Discharge Summary
Discharge Data
Date of Admission: 08/27/24
Date of Discharge: 08/30/24
-
Pending Results: No
Hospital Course
59 years old male with paroxysmal atrial fibrillation (on apixaban), hypertension, type 2 diabetes mellitus, and obesity who presented with palpitations and tachycardia with chest discomfort. In the emergency department, he was found to be in
atrial fibrillation with right ventricular response. He was given 5 mg of intravenous Lopressor. It did not have any effect on his elevated heart rate. He was then given a diltiazem bolus with anticipation of starting a drip. After 15 minutes,
he became lightheaded and dizzy. Heart rate went into the 50s and a junctional rhythm with PACs with hypotension. He was given atropine x 2 without response to heart rate nor blood pressure. He then had a vagal episode and was started on
epinephrine. Patient was admitted to ICU but later converted to sinus rhythm and not requiring epinephrine. Troponin remained negative. EKG without acute ischemic changes. Patient was evaluated by dietary internship. He was placed back on metoprolol.
Blood pressure remained stable. Patient developed another episode of atrial fibrillation with tachycardia. He was started on Flecainide. Patient was monitored and repeat EKGs did not show prolongation of QT. Pourer recommended outpatient EP
consultation for possible ablation. Patient was counseled regarding healthy lifestyle including exercise, weight loss, BP control, diabetes control ( HGB A1C 9.1), sleep apnea evaluation/treatment. Patient denies any significant ETOH use.
metoprolol was increased to 100 mg BID, lisinopril was stopped to avoid hypotension. Patient remained hemodynamically stable, he was discharged in s table condition.
Discharge Plan
-
Patient Disposition: Home (Routine Discharge)
Discharge Diagnosis/Procedures: Paroxysmal and atrial fibrillation and now typical atrial flutter: increased metoprolol dose, started on Flecainide.
Diet: As tolerated and Diabetic, Carb Controlled
Referrals:
Tri Vann DO [Active] - in six weeks (sleep eval)
Fe Jackson PA-C [Family Provider] - in one to two weeks
Ronald Nina MD [Active] - 09/27/24 3:20 pm (If you are unable to make this appointment, please call to reschedule with at least 72 hours notice.)
Prescriptions:
New
dapagliflozin propanediol 10 mg Tablet
10 mg PO DAILY Qty: 30 0RF
atorvastatin 20 mg Tablet
20 mg PO HS Qty: 30 0RF
metoprolol succinate 100 mg Tablet Extended Release 24 Hr
100 mg PO BID Qty: 60 0RF
flecainide 100 mg Tablet
100 mg PO Q12 Qty: 60 0RF
Continued
trazodone 150 mg Tablet
300 mg PO HS
buspirone 10 mg Tablet
20 mg PO BID
Eliquis 5 mg Tablet
5 mg PO BID
omeprazole 20 mg Capsule,Delayed Release(Dr/Ec)
20 mg PO DAILY
insulin lispro protamin-lispro [Humalog Mix 75-25 KwikPen] 100 unit/mL (75-25) Insulin Pen
60 unit SC BID
rosuvastatin 40 mg Tablet
40 mg PO DAILY
cholecalciferol (vitamin D3) 50 mcg (2,000 unit) Tablet
50 mcg PO HS
Trulicity 1.5 mg/0.5 mL Pen Injector
1.5 mg SC TU
Discontinued
metoprolol succinate 50 mg Tablet Extended Release 24 Hr
50 mg PO BID
lisinopril 5 mg Tablet
5 mg PO HS
Discharge Orders:
Discharge Patient (As Directed); Ordered 08/30/24
Ordered By: Rebeca Spence
Care Plan Goals
Care Plan Goals:
Problem: Readiness for enhanced knowledge related to diagnosis and treatment plan
Goal: Understand your diagnosis and treatment plan needs, including medications if applicable.
Instructions: Know your diagnosis, underlying causes and treatment plan options, including medications if applicable. Consult with your health care team to learn about your diagnosis and treatment plan, including medications if applicable.
Discharge Date and Time
Discharge Date/Time: 08/30/24 12:34
Print Language: [place]AST [place]
== END 2024-08-30 12:34 | disposition home or self-care (01) | DRG 310 ==
LOC: IVU 23:59
PROVIDERS: Nurse Practitioner Family; Physician Assistant; ADMITTING PHYSICIAN Internal Medicine; ATTENDING PHYSICIAN Internal Medicine; EMERGENCY PHYSICIAN Student in an Organized Health Care Education/Training Program; FAMILY PHYSICIAN Physician Assistant; OTHER PHYSICIAN Internal Medicine; OTHER PHYSICIAN Internal Medicine Cardiovascular Disease
PROC: 3E02340 Introduction of Influenza Vaccine into Muscle, Percutaneous Approach (ICD-10-PCS; 2024-08-30)
DX: I48.0 Paroxysmal atrial fibrillation (principal); I48.3 Typical atrial flutter; I16.0 Hypertensive urgency; I10 Essential (primary) hypertension; I47.10 Supraventricular tachycardia, unspecified; E11.65 Type 2 diabetes mellitus with hyperglycemia; E78.00 Pure hypercholesterolemia, unspecified; F32.A Depression, unspecified; F41.9 Anxiety disorder, unspecified; G47.33 Obstructive sleep apnea (adult) (pediatric); I25.10 Atherosclerotic heart disease of native coronary artery without angina pectoris; K21.9 Gastro-esophageal reflux disease without esophagitis; I95.9 Hypotension, unspecified; R00.1 Bradycardia, unspecified; T46.1X5A Adverse effect of calcium-channel blockers, initial encounter; K52.9 Noninfective gastroenteritis and colitis, unspecified; E66.9 Obesity, unspecified; Z68.35 Body mass index [BMI] 35.0-35.9, adult; Z23 Encounter for immunization; Z79.01 Long term (current) use of anticoagulants; Z88.8 Allergy status to other drugs, medicaments and biological substances; Z79.84 Long term (current) use of oral hypoglycemic drugs; Z79.4 Long term (current) use of insulin; Z79.899 Other long term (current) drug therapy; Z87.891 Personal history of nicotine dependence
CPT/HCPCS: 71045; 80048; 80053; 82962; 83036; 83735; 83880; 84100; 84484; 85025; 85027; 85610; 85730; 90686; 93005; 93306; 96374; 96375; 99291; G0008

== ENCOUNTER 2024-08-31 23:31 | Inpatient (IN) | payer OTHER, SELFPAY ==
[2024-08-31 21:40] VITALS: BP 128/89
[2024-08-31 21:56] VITALS: BP 131/74
[2024-08-31 22:00] VITALS: BP 124/83
[2024-08-31 22:23] LABS: % Basophils 0.4 % (0-2); % Eosinophils 4.6 % (0-6); % Immature Granulocytes 0.4 % (0-0.5); % Lymphocytes 27.6 % (20.5-51.1); % Monocytes 7.6 % (1.7-9.3); % Neutrophils 59.4 % (42.2-75.2); Absolute Eosinophils 0.3 10^3/uL (0-0.7); Absolute Lymphocytes 1.9 10^3/uL (1.2-3.4); Absolute Monocytes 0.5 10^3/uL (0.1-0.6); Hematocrit 37.9 % (39.0-52.0); Hemoglobin 13.7 g/dL (13.0-18.0); Mean Corp Hgb Conc. 36.1 g/dL (33.0-37.0); Mean Corpuscular Hgb 28.3 pg (27.0-31.0); Mean Corpuscular Volume 78.3 fL (80.0-94.0); Mean Platelet Volume 9.4 fL (7.4-10.4); Nucleated Red Blood Cells % 0 % (-); Platelet Count 196 10^3/uL (130-400); Red Blood Cell Count 4.84 10^6/uL (4.70-6.10); Red Cell Dist. Width 13.2 % (11.5-14.5); White Blood Cell Count 6.7 10^3/uL (4.8-10.8)
[2024-08-31 22:30] LABS: ALT (SGPT) 32 U/L (0-50); AST (SGOT) 62 U/L (17-59); Albumin 4.2 g/dl (3.5-5.0); Alkaline Phosphatase 80 U/L (38-126); Blood Urea Nitrogen 30 mg/dl (9-20); Calcium 9.2 mg/dl (8.4-10.2); Carbon Dioxide 25 mmol/L (22-30); Chloride 103 mmol/L (98-107); Glucose 95 mg/dl (70-99); Potassium 4.1 mmol/L (3.5-5.1); Sodium 139 mmol/L (135-145); Total Bilirubin 0.5 mg/dl (0.2-1.3); Total Protein 6.6 g/dl (6.3-8.2); eGFR 40.13
[2024-08-31 22:42] LABS: NT-proBNP 127 pg/ml; Troponin I < 0.012 ng/ml
--- NOTE | 2024-08-31 23:01 | ED.GENMED ---
History of Present Illness
General
Chief Complaint: Heart Rate Problem
Source: patient
Time Seen by Provider: 08/31/24 21:58
History of Present Illness
History of Present Illness:
This a 59-year-old male who was recently admitted and discharged with A-fib. The patient during his last workup did become bradycardic after diltiazem. The patient states that he had been feeling okay and was scheduled to possibly consider an
ablation but at home he laid down and felt his heart pounding again and felt short of breath. Patient still feels that way. He feels a little lightheaded and short of breath and can feel his heart fluttering.
Past History
Past History
ED Past Medical History: Arrthythmia (Atrial fibrillation), HTN and NIDDM
ED Past Surgical History: Appendectomy, Orthopedic (Right leg surgery) and Other (facial reconstruction)
Social History
Tobacco: Former smoker
Alcohol: Occasional (Very ocasional)
Personal:
Living: with family
Phy Exam
Physical Exam
Physical Exam:
CONSTITUTIONAL Patient alert and oriented to person, place and time. Well-appearing. Vital signs reviewed.
HEAD atraumatic, normocephalic.
EYES eyelids normal to inspection, Pupils equally round and reactive to light, Extraocular muscles intact, Conjunctiva normal, Sclera normal.
NECK normal range of motion, Trachea midline, no jugular venous distention.
RESPIRATORY CHEST No respiratory distress noted, Chest expansion equal, Bilateral breath sounds clear.
CARDIOVASCULAR irregularly irregular and tachycardic, Heart sounds normal.
ABDOMEN abdomen nontender, Bowel sounds normal. No distention.
BACK normal inspection, no obvious deformities
UPPER EXTREMITY range of motion normal, Motor strength normal, no cyanosis, no edema.
LOWER EXTREMITY range of motion normal, Motor strength normal, no cyanosis, no edema.
NEURO Speech normal, No focal motor deficits, [place] coma scale 15, Memory normal, Cranial Nerves intact to screening exam.
SKIN skin warm, dry, and normal in color.
PSYCHIATRIC patient oriented to person place and time, Normal affect.
Course
Orders/Labs/Results
Orders:
Orders
08/31/24 21:38
Electrocardiogram (*1) Urgent
Reason for Study: Other
Other Reason for Exam: Respiratory Distress
Cardiac Monitoring- Treatment ONCE
EKG- Treatment ONCE
IV Insert/Care/Rem.- Treatment PRN
CR Chest - 2 Views Urgent
Comment:
Reason For Exam: respiratory distress
O2 Therapy [RESP] Urgent
Titrate/Wean O2 to maintain O2 sat greater than (%): 93
Special Instructions: TO MAINTAIN CONTINUOUS O2 SATS >/= 93%
Pulse Ox/cont/shift [RESP] Urgent
Quantity: 1
Special Instructions: continuous pulse ox
08/31/24 22:04
Complete Blood Count/With Diff Urgent
Comprehensive Metabolic Panel Urgent
NT-proBNP Urgent
Troponin I Urgent
08/31/24 23:22
Admit/Transfer Patient As Directed
Co-Sign Provider:
Level of Care: Inpatient admission
Assign to:: Telemetry
Physician / Group: marlee
Diagnosis: afib rvr
Reason for Telemetry: Arrhythmia
Date to Stop Telemetry: 09/03/24
Time to Stop Telemetry: 11:00
Reason for Hospitalization: afib rvr
Expected length of stay greater than two midnights?: Yes
ELOS- Estimated Length of Stay in days: 2
I certify the patient meets the requirements for IP care: Yes
PRN Pain Medication Management As Directed
May give lesser potent ordered pain med per pt: Yes
preference::
Protocol:: Medication orders for pain may be administered in a
manner that supports deferring to patient preference
when the pt is:
- Requesting an ordered lesser potent pain medication.
Least to most potent pain medications are defined
as: acetaminophen < NSAID < tramadol < opioids
(morphine, oxycodone, hydromorphone).
- Requesting a lesser dose of the same medication IF
ORDERED.
- Requesting a less intrusive route of administration
if both routes are prescribed by the provider (PO <
IV).
08/31/24 23:23
Code Status As Directed
Resuscitation Status: Full Code
09/01/24 00:34
0.9% Sodium Chloride 1000 ml [Nss] 1,000 ml IV 70 mls/hr
Dextrose 50%-Water [Dextrose 50% Syringe] 12.5 grams IV [id number] PRN
Glucagon [GlucaGen] 1 mg IM PRN PRN
09/01/24 00:34
CARDIOLOGY CONSULT Routine
Consulting Provider: Aguilar Alvarado
Was physician already notified: Yes
VTE Contraindication Routine
VTE Mechanical Device Contraindication: Medical Contraindication
Pharmocologic Contraindication: Medical Contraindication
Activity As Directed
Activity Level: As Tolerated
Bedside Glucose Monitoring As Directed
Frequency: AC&HS
Additional Instructions:: Change to q6h if pt on TPN, tube feeding or not eating
Vital Signs As Directed
Frequency: Per unit guidelines
09/01/24 04:41
Complete Blood Count/With Diff IN AM
Comprehensive Metabolic Panel IN AM
09/01/24 Breakfast
NPO
Allow oral meds: Yes
Allow clear liquids: Sips of Clears
09/01/24 07:30
Insulin Aspart Corrective Low [Novolog Flexpen-Low Resistance] See Protocol SC AC
09/01/24 08:00
Apixaban [Eliquis] 5 mg PO BID
Buspirone [Buspar] 20 mg PO BID
Flecainide [Tambocor] 100 mg PO Q12
Insulin Aspart/Asp Protamine [Novolog Mix 70/30 Flexpen] 20 units SC BID
Metoprolol Xl [Toprol Xl] 100 mg PO BID
Pantoprazole [Protonix] 40 mg PO DAILY
Rosuvastatin Calcium [Crestor] 40 mg PO DAILY
09/01/24 Lunch
2000 calorie (17 carb) Diabetic
At Your Request: Full Participation
Does patient need a safe tray?: No
09/01/24 22:00
Atorvastatin [Lipitor] 20 mg PO HS
Cholecalciferol (Vitamin D3) [VITAMIN D3 (cholecalciferol)] 50 mcg PO HS
Trazodone [Desyrel] 300 mg PO HS
09/03/24 11:00
DC Protocol for Telemetry ONCE
Abnormal Lab Results
08/31/24
22:04
Hct 37.9 L %
(39.0-52.0)
MCV 78.3 L fL
(80.0-94.0)
BUN 30 H mg/dl
(9-20)
Creatinine 1.9 H mg/dL
(0.7-1.3)
AST 62 H U/L
(17-59)
08/31/24 22:04
08/31/24 22:04
Vital Signs
Initial and Last Documented VS:
Initial Vital Signs
Temp Pulse Resp BP Pulse Ox
97.8 F 107 26 128/89 95
08/31/24 21:40 08/31/24 21:40 08/31/24 21:40 08/31/24 21:40 08/31/24 21:40
Last Documented Vital Signs
Temp Pulse Resp BP Pulse Ox
97.6 F 60 16 122/76 96
09/02/24 07:16 09/02/24 07:16 09/02/24 07:16 09/02/24 07:16 09/02/24 07:16
MDM/Problems Addressed
MDM/Problems Addressed:
Atrial fibrillation with RVR
*Radiology
Radiology exam reviewed: all reviewed NAD by ED Provider
*Pulse Oximetry
Patient hypoxic: no
*EKG
Interpreted by ED Provider?: Yes
Interpretation: abnormal
Rate: tachycardiac
Rhythm: a-fib
O'Brien: normal axis
QRS Pattern: poor R-wave progression
Ischemia: non-specific ST changes
*Quality Facilitator Interpretation
Rate: tachycardiac
Interpretation: abnormal
Rhythm: a-fib
*Critical Care Note
Total Time (30-74mins, 75-104mins- exclusive of procedures): 30 minutes
Data Reviewed
Review of Other/Old Records Reveals: Progress Notes (Cardiology progress notes reviewed from August 2024) and Discharge Summary (Reviewed from August 2024)
Source: patient
Prescriptions/Medications Considered But Not Given:
Consider diltiazem but patient recently became bradycardic after diltiazem. Is currently resting comfortably. Hold off on rate control
Patient Management
Discussion with other providers: Hospitalist and Allocations Clerk (Case discussed with Dr. Alvarado)
Escalation/DeEscalation of care consider admission/obs:
Case discussed with cardiology. Recommends admission for cardiology evaluation as he is somewhat complicated. Currently stable
ED Attending Note
-
Portions of this chart may have been created with voice recognition software.� Occasional wrong word or��sound alike� substitutions may have occurred due to the inherent limitations of voice recognition software.
Discharge Plan
Departure
Patient Disposition: Admit
Date of Disposition: 08/31/24
Time of Disposition: 23:01
Admit to: Telemetry
Presentation/result/management discussed w/ accepting MD/DO: Hospitalist
Discharge Problem:
Atrial fibrillation with RVR
Interventions
Interventions:
*Risk Screen - Suicide Last Done: 08/31/24 21:50
*General Assessment Last Done: 08/31/24 22:46
*Neglect/Abuse Screening Last Done: 08/31/24 22:46
ED- Fall Risk Assessment Last Done: 08/31/24 23:10
*ED COVID-19 Vaccine History Last Done: 09/01/24 00:39
*Nursing Disposition Last Done: 09/01/24 00:30
ED- Cardiac Assessment Last Done: 08/31/24 23:10
ED- Pulmonary Assessment Last Done: 08/31/24 23:10
Discharge Date and Time
Discharge Date/Time: 09/01/24 00:30
[2024-08-31 23:10] VITALS: BP 122/81
--- NOTE | 2024-08-31 23:29 | HPS.HSE ---
Family Physician
-
Family Physician: Fe Jackson PA-C
Chief Complaint
-
palpitations
History of Present Illness
59-year-old male past medical history of paroxysmal atrial fibrillation, type 2 diabetes, chronic diarrhea, GERD, hypertension, depression, presenting for symptomatic atrial fibrillation with RVR. Angela was discharged yesterday began feeling
palpitations with shortness of breath with dizziness. He denies nausea vomiting or diarrhea. He has been eating and drinking normally. Denies decreased urine output. Denies lower extremity edema.
Patient was discharged yesterday after being admitted for palpitations and tachycardia with chest discomfort. He was found to be in atrial fibrillation with RVR. He was given Cardizem bolus and became lightheaded and dizzy. His heart rate went
into the 50s with junctional rhythm and PACs with hypotension. This did not respond to atropine x 2 and he was started on epinephrine converted to sinus not requiring epinephrine. Patient was seen by cardiology placed back on metoprolol. He
developed atrial fibrillation once again tachycardia and was started on flecainide. Cardiology recommended outpatient EP consultation for possible ablation. Lisinopril was stopped and metoprolol was increased to 100 mg twice daily.
Medical History
Past Medical History
Past Medical History: Reports Other (paroxysmal atrial fibrillation, type 2 diabetes, chronic diarrhea, GERD, hypertension, depression,)
Past Surgical History: Reports Other (Appendectomy, Orthopedic (Right leg surgery) and Other (facial reconstruction))
Social History
Tobacco: Former Smoker
Alcohol: Former
Drug: None
Family History
Family History: Not pertinent
Allergies / Home Medications
Allergies reflects when Allergies were last updated in [employer].
Home Medications with original date entered in [employer]
Allergy/Medication List:
Allergies
Allergy/AdvReac Type Severity Reaction Status Date / Time
liraglutide [From Victoza] Allergy Unknown Verified 08/31/24 21:39
semaglutide [From Ozempic] Allergy Nausea / Verified 08/31/24 21:39
Vomiting
prochlorperazine AdvReac Unknown Verified 08/31/24 21:39
[From Compazine]
Home Medications
apixaban 5 mg tablet (Eliquis) 5 mg PO BID Blood Clot Prevention/Tx 06/09/22
buspirone 10 mg tablet 20 mg PO BID Mental Health/Anxiety 06/09/22
trazodone 150 mg tablet 300 mg PO HS Sleep 06/09/22
cholecalciferol (vitamin D3) 50 mcg (2,000 unit) tablet 50 mcg PO HS Supplement 08/28/24
dulaglutide 1.5 mg/0.5 mL subcutaneous pen injector (Trulicity) 1.5 mg SC TU Diabetes 08/28/24
insulin lispro protamine-lispro 100 unit/mL (75-25) subcutaneous pen (Humalog Mix 75-25 KwikPen) 60 unit SC BID Diabetes 08/28/24
omeprazole 20 mg capsule,delayed release 20 mg PO DAILY Gastrointestinal Issue 08/28/24
rosuvastatin 40 mg tablet 40 mg PO DAILY High Cholesterol 08/28/24
atorvastatin 20 mg tablet 20 mg PO HS #30 tabs 08/30/24
dapagliflozin propanediol 10 mg tablet 10 mg PO DAILY #30 tabs 08/30/24
flecainide 100 mg tablet 100 mg PO Q12 #60 tabs 08/30/24
metoprolol succinate 100 mg tablet,extended release 24 hr 100 mg PO BID #60 tabs 08/30/24
Review of Systems
-
History Source: Patient
A 12 point ROS was completed and negative except as noted: Yes
Constitutional: Reports No Symptoms
EENT: Reports No Symptoms
Respiratory: Reports See HPI
Cardiac: Reports See HPI
Abdomen/GI: Reports No Symptoms
: Reports No Symptoms
Musculoskeletal: Reports No Symptoms
Skin: Reports No Symptoms
Neurological: Reports No Symptoms
Endocrine: Reports No Symptoms
Hematologic/Lymphatic: Reports No Symptoms
Psych: Reports No Symptoms
Physical Exam
Vital Signs
Vital Signs
Temp Pulse Resp BP Pulse Ox
97.8 F 104 15 124/83 92
08/31/24 21:40 08/31/24 22:30 08/31/24 22:30 08/31/24 22:00 08/31/24 22:30
Physical Exam
General: Well Developed, Well Nourished and No Apparent Distress
HEENT: NormoCephalic, Moist mucous membranes and Atraumatic
Respiratory: Clear
Cardiac: S1/S2, Irregular Rhythm and Tachycardia; No Murmur or Rub
GI: Soft, Non Tender, Non Distended and Normal Bowel Sounds; No Organomegaly
Rectal: Deferred by Provider
Musculoskeletal: No Clubbing, No Cyanosis and No Edema
Skin: No Rash
Neuro: Nonfocal/grossly intact
Laboratory Results
-
08/31/24 22:04
08/31/24 22:04
Laboratory Results
Total Bilirubin 0.5 mg/dl (0.2-1.3) 08/31/24 22:04
AST 62 U/L (17-59) H 08/31/24 22:04
ALT 32 U/L (0-50) 08/31/24 22:04
Alkaline Phosphatase 80 U/L (38-126) 08/31/24 22:04
Troponin I < 0.012 ng/ml 08/31/24 22:04
Data Reviewed
-
Lab Data: Labs Reviewed by me
Old Records: Reviewed
Impression/Plan
-
IMPRESSION:
PLAN:
# Recurrent symptomatic atrial fibrillation/flutter with RVR
-EKG shows atrial fibrillation with heart rate of 93, heart rates up to 115
-Chest x-ray unremarkable
-Continue metoprolol
-Continue flecainide
-Continue Eliquis
-Cardiology consulted, ablation being considered
-N.p.o. past midnight
# BRITTNEY possibly due to ATN from recurrent A-fib
-Creatinine 1.9 from 1.2 two days prior
-Hold dapagliflozin
-Gentle IV fluids
Essential hypertension
Type 2 diabetes
-Blood sugar 95
-On Trulicity normally
-Continue Humalog 75�25, reduced from 60 units twice daily to 20 units twice daily
-Hold dapagliflozin
-Insulin sliding scale
Former smoker
Obesity
Chronic diarrhea
GERD
-Continue omeprazole
Anxiety/depression
-Continue buspirone
Insomnia
-Continue trazodone
Hypercholesterolemia
-Continue statin
Full code
DVT prophylaxis�Eliquis
Diabetic diet
[2024-09-01] VITALS (9 sets, daily range): BP systolic 101–133; BP diastolic 63–103; BMI 34.9
[2024-09-01] MEDS: NSS 1000 IV ×2 (00:56→14:53)
--- NOTE | 2024-09-01 01:22 | PTCARENOTE ---
Pt admitted to 2242. Pt AAOx3 VSS. Pt converted to NSR. Pt denies pain or discomfort. Able to ambulate independently in the room. NPO per order.
[2024-09-01 05:28] LABS: % Basophils 0.4 % (0-2); % Eosinophils 4.2 % (0-6); % Immature Granulocytes 0.6 % (0-0.5); % Lymphocytes 22.9 % (20.5-51.1); % Monocytes 7.7 % (1.7-9.3); % Neutrophils 64.2 % (42.2-75.2); Absolute Eosinophils 0.3 10^3/uL (0-0.7); Absolute Lymphocytes 1.6 10^3/uL (1.2-3.4); Absolute Monocytes 0.5 10^3/uL (0.1-0.6); Absolute Neutrophils 4.4 10^3/uL (1.4-6.5); Hematocrit 35.8 % (39.0-52.0); Hemoglobin 12.7 g/dL (13.0-18.0); Mean Corp Hgb Conc. 35.5 g/dL (33.0-37.0); Mean Corpuscular Hgb 29.1 pg (27.0-31.0); Mean Corpuscular Volume 81.9 fL (80.0-94.0); Mean Platelet Volume 9.8 fL (7.4-10.4); Nucleated Red Blood Cells % 0 % (-); Platelet Count 162 10^3/uL (130-400); Red Blood Cell Count 4.37 10^6/uL (4.70-6.10); White Blood Cell Count 6.9 10^3/uL (4.8-10.8)
[2024-09-01 05:52] LABS: ALT (SGPT) 27 U/L (0-50); AST (SGOT) 44 U/L (17-59); Albumin 3.7 g/dl (3.5-5.0); Alkaline Phosphatase 65 U/L (38-126); Blood Urea Nitrogen 29 mg/dl (9-20); Calcium 8.7 mg/dl (8.4-10.2); Carbon Dioxide 22 mmol/L (22-30); Chloride 106 mmol/L (98-107); Estimated Creatinine Clearance 66 ml/min; Glucose 92 mg/dl (70-99); Potassium 3.8 mmol/L (3.5-5.1); Sodium 140 mmol/L (135-145); Total Bilirubin 0.4 mg/dl (0.2-1.3); Total Protein 5.9 g/dl (6.3-8.2); eGFR 49.33
--- NOTE | 2024-09-01 06:34 | W.PN.HOSP.TC ---
Today's Communication/Plan
-
EKG
f/w Cardiology recommendation
Assessment / Plan
Assessment / Plan
Physical Exam
General: Well Developed, Well Nourished and Appears in Distress, obese
HEENT: Normocephalic, Anicteric, Moist mucous membranes and Atraumatic
Respiratory: Clear
Cardiac: S1/S2, Regular Rhythm and Bradycardia
GI: Soft, Non Tender, Non Distended and Normal Bowel Sounds
Rectal: no bleeding
Genito-urinary: no Jordan
Musculoskeletal: No Clubbing, No Cyanosis and No Edema
Skin: Warm, tattoos
Neuro: AO x 3, he followed commands
Psych: Calm
# Recurrent symptomatic atrial fibrillation/flutter with RVR
Hx of Aflutter variable conduction.
Currently in SR , HR around 70s, will order an EKG
No chest pain
Negative troponin
EKG reviewed
On Toprol 100 mg BID, Flecainide, Eliquis.
Echo showed LVEF 50-55%, Mild LVH, no significant valvular disease.
Will f/w cardiology recommendations.
BRITTNEY
Creatinine is coming down
No flank pain
# . DM II - on 75/25 60 bid and Trulicity
HGB A1c 9.1
- sliding scale acsh
- 70/30 40 units bid
# Chronic diarrhea from DM meds
# GERD -
- continue ppi
# Primary HTN
- c/w metoprolol for now
# Depression -
Mood is cooperative
- continue buspirone
- off duloxetine for 30 days, holding
DVT PPX - on apixaban
Code status - full code
Total time spent to see the patient, examine the patient on the floor, review data and lab results, discuss treatment plan with patient, nursing staff around 55 minutes
Anticipated Discharge: 24 - 48 hours
Subjective/Interval History
-
Date of Service: September 01, 2024
Objective Data
-
Labs:
Laboratory Results
08/31/24 09/01/24
22:04 04:41
WBC 6.7 6.9
Hgb 13.7 12.7 L
Hct 37.9 L 35.8 L
Plt Count 196 162
Sodium 139 140
Potassium 4.1 3.8
Chloride 103 106
Carbon Dioxide 25 22
BUN 30 H 29 H
Creatinine 1.9 H 1.6 H
Glucose 95 92
Calcium 9.2 8.7
Total Bilirubin 0.5 0.4
AST 62 H 44
ALT 32 27
Alkaline Phosphatase 80 65
Vital Signs:
Vital Signs
Temp Pulse Resp BP Pulse Ox
97.7 F 69 16 111/63 95
09/01/24 04:24 09/01/24 04:45 09/01/24 04:24 09/01/24 04:26 09/01/24 04:26
[2024-09-01 07:52] LABS: Glucose - Point of Care 112 mg/dl (70-99)
[2024-09-01] MEDS: TOPROL XL 100 MG PO ×2 (08:05→19:21)
[2024-09-01] MEDS: PROTONIX 40 MG PO (08:05)
[2024-09-01] MEDS: BUSPAR 20 MG PO ×2 (08:05→19:21)
[2024-09-01] MEDS: CRESTOR 40 MG PO (08:05)
[2024-09-01] MEDS: ELIQUIS 5 MG PO ×2 (08:05→19:20)
[2024-09-01] MEDS: TAMBOCOR 100 MG PO ×2 (08:05→19:21)
[2024-09-01] MEDS: NOVOLOG FLEXPEN-HIGH RESISTANCE SC (08:05)
[2024-09-01] MEDS: FLUSH (NSS) 1 FLUSH IV (08:05)
[2024-09-01] MEDS: NOVOLOG MIX 70/30 FLEXPEN 20 UNITS SC ×2 (08:07→21:34)
--- NOTE | 2024-09-01 09:21 | PTCARENOTE ---
The patient is aaox3. VSS, 97% on RA. NSR with PACs noted on the monitor. He has no complaints of palpations or SOB. NS is running at 70ml/hr.
--- NOTE | 2024-09-01 10:17 | CON.CAR ---
Consultation
Consultation Request
Date/Time Consultation Requested: 09/01/24
Date/Time Consultation Performed: 09/01/24
Requesting Provider: Dr. Pozo
Performing Provider: Dr. Alvarado
Reason for Consultation: PAF/RVR
Medical History
-
Chief Complaint: Palpitations
History of Present Illness:
59-year-old male with paroxysmal atrial fibrillation (on apixaban), hypertension, type 2 diabetes mellitus, and obesity who presented with palpitations and elevated heart rate. The patient was just discharged from the hospital 1 day before
returning back to the ER. He was found to be in atrial fibrillation with RVR. The patient denies chest pain or shortness of breath. The patient was found to have BRITTNEY with a creatinine increase from 1.2 to 1.9 in 1 day.
Past Medical History
Past Medical History: Arrhythmias (PAF), HTN and NIDDM
Past Surgical History: Appendectomy
Social History
Tobacco: Former Smoker (Quit 18 years ago)
Alcohol: Occasional (Infrequent)
Drug: None
Personal:
Employment: Employed
Family History
Family History: Reviewed & Not Pertinent
Allergies / Home Medications
Allergy/AdvReac Type Severity Reaction Status Date / Time
liraglutide [From Victoza] Allergy Unknown Verified 08/31/24 21:39
semaglutide [From Ozempic] Allergy Nausea / Verified 08/31/24 21:39
Vomiting
prochlorperazine AdvReac Unknown Verified 08/31/24 21:39
[From Compazine]
�Medication �Instructions �Recorded �Confirmed �Type
apixaban 5 mg tablet (Eliquis) 5 mg PO BID Blood Clot 06/09/22 08/31/24 History
Prevention/Tx
buspirone 10 mg tablet 20 mg PO BID Mental Health/Anxiety 06/09/22 08/31/24 History
trazodone 150 mg tablet 300 mg PO HS Sleep 06/09/22 08/31/24 History
cholecalciferol (vitamin D3) 50 50 mcg PO HS Supplement 08/28/24 08/31/24 History
mcg (2,000 unit) tablet
dulaglutide 1.5 mg/0.5 mL 1.5 mg SC TU Diabetes 08/28/24 08/31/24 History
subcutaneous pen injector
(Trulicity)
insulin lispro protamine-lispro 60 unit SC BID Diabetes 08/28/24 08/31/24 History
100 unit/mL (75-25) subcutaneous
pen (Humalog Mix 75-25 KwikPen)
omeprazole 20 mg capsule,delayed 20 mg PO DAILY Gastrointestinal 08/28/24 08/31/24 History
release Issue
rosuvastatin 40 mg tablet 40 mg PO DAILY High Cholesterol 08/28/24 08/31/24 History
atorvastatin 20 mg tablet 20 mg PO HS #30 tabs 08/30/24 08/31/24 Rx
dapagliflozin propanediol 10 mg 10 mg PO DAILY #30 tabs 08/30/24 08/31/24 Rx
tablet
flecainide 100 mg tablet 100 mg PO Q12 #60 tabs 08/30/24 08/31/24 Rx
metoprolol succinate 100 mg 100 mg PO BID #60 tabs 08/30/24 08/31/24 Rx
tablet,extended release 24 hr
Review of Systems
-
History Source: Patient
All other systems: Negative unless noted
Physical Exam
Vital Signs
Temp Pulse Resp BP Pulse Ox
97.9 F 67 18 106/64 97
09/01/24 07:03 09/01/24 07:00 09/01/24 07:03 09/01/24 07:00 09/01/24 07:03
Lab Results
09/01/24 04:41
09/01/24 04:41
Troponin I < 0.012 ng/ml 08/31/24 22:04
Fmx-Y-Vzsfkbdjuuw Pept 127 pg/ml 10/03/24 22:04
Physical Exam
General: No Apparent Distress and Comfortable
HEENT: Normocephalic and Anicteric
Respiratory: Clear
Cardiac: S1/S2 and Regular Rhythm
Breast: N/A
GI: Soft
Rectal: Deferred by Provider
Musculoskeletal: No Clubbing, No Cyanosis and No Edema
Skin: Warm and Dry
Neuro: AO x 3
Psych: Calm
Impression / Plan
-
59-year-old male with paroxysmal atrial fibrillation (on apixaban), hypertension, type 2 diabetes mellitus, and obesity who presented with palpitations and elevated heart rate. The patient was just discharged from the hospital 1 day before
returning back to the ER. He was found to be in atrial fibrillation with RVR. The patient was found to have BRITTNEY with a creatinine increase from 1.2 to 1.9 in 1 day; etiology unclear.
PAF/RVR:
-Patient is now back in sinus rhythm; telemetry stable.
-Continue metoprolol succinate ER 100 mg twice daily and flecainide 100 mg twice daily.
-Already scheduled to see EP Cardiology to discuss ablation next week on 09/06/2024.
-Continue Eliquis.
-The patient can follow-up with Cardiology as an outpatient as scheduled; no further recommendations at this time.
BRITTNEY:
-Etiology unclear; improving with IV fluids--continue as needed.
Hypertension: Blood pressure controlled on current medications.
Data Reviewed
-
EKG: Tracing Personally Visualized and interpreted (Telemetry: Sinus rhythm)
Medical Tests (Nuc Med, Echo etc): Image Personally Visualized and interpreted (Transthoracic echocardiogram 08/29/2024: LVEF 50-55%; no significant valvular disease.)
Labs: Labs Reviewed by me (Creatinine 1.9 --> 1.6)
[2024-09-01 11:07] LABS: Glucose - Point of Care 124 mg/dl (70-99)
--- NOTE | 2024-09-01 11:09 | CM ---
Chart reviewed. Patient is independent of ADLS, lives alone in a apartment, [address], 0 DME. Plan is for the patient to return home. CM to follow
[2024-09-01] MEDS: NOVOLOG FLEXPEN-HIGH RESISTANCE 1 UNITS SC ×2 (11:30→16:51)
[2024-09-01 16:51] LABS: Glucose - Point of Care 128 mg/dl (70-99)
[2024-09-01 20:46] LABS: Glucose - Point of Care 137 mg/dl (70-99)
[2024-09-01] MEDS: DESYREL 300 MG PO (21:35)
[2024-09-01] MEDS: LIPITOR 20 MG PO (21:35)
[2024-09-01] MEDS: VITAMIN D3 (cholecalciferol) 50 MCG PO (21:35)
[2024-09-01 22:23] LABS: Glucose - Point of Care 124 mg/dl (70-99)
--- NOTE | 2024-09-01 23:02 | PTCARENOTE ---
Patient rang call shaffer at approx 22:15. Upon assessment pt sitting on side of bed and c/o feeling 'night sweats'. Patient skin clammy to touch. Blood sugar rechecked w/ a result of 124. BP 124/83, HR in the 60s. NSR. Sating 97% RA. Patient denies
any dizziness or palpitations at this time. Patient does report feeling anxious and is unsure whether its his anxiety vs his HR that is making him feel this way. RN provided emotional support and reassured patient that he's currently in NSR. [facility]
Janet SALAS made aware. No new orders obtained at this time. Patient had already received his 300mg of Trazodone at 21:35. Patient aware, POC ongoing. Call shaffer within reach.
[2024-09-02 04:48] VITALS: BP 124/78
[2024-09-02] MEDS: NSS 1000 IV (04:53)
--- NOTE | 2024-09-02 06:46 | W.PN.HOSP.TC ---
Today's Communication/Plan
-
# Panic attack
He has similar feeling last night and felt clammy, sob, palpitations. Vital were stable, HR on Monitor was SR and stable around 70s. Pt reports anxiety at times with panic feeling
He will benefit from optimizing ant-anxiety medications with his PCP. I D/W pt, he will be given low dose Ativan until he sees his Primary care doctor. Pt is aware that Ativan is temporary measure, sedative and controlled substance. He was son
Britta in the past.
Assessment / Plan
Assessment / Plan
Physical Exam
General: Well Developed, Well Nourished and Appears in Distress, obese
HEENT: Normocephalic, Anicteric, Moist mucous membranes and Atraumatic
Respiratory: Clear
Cardiac: S1/S2, Regular Rhythm and Bradycardia
GI: Soft, Non Tender, Non Distended and Normal Bowel Sounds
Rectal: no bleeding
Genito-urinary: no Jordan
Musculoskeletal: No Clubbing, No Cyanosis and No Edema
Skin: Warm, tattoos
Neuro: AO x 3, he followed commands
Psych: Calm
# Recurrent symptomatic atrial fibrillation/flutter with RVR
Hx of Aflutter variable conduction.
Currently in SR , HR around 70s, will order an EKG
No chest pain
Negative troponin
EKG reviewed
On Toprol 100 mg BID, Flecainide, Eliquis.
Echo showed LVEF 50-55%, Mild LVH, no significant valvular disease.
Will f/w cardiology recommendations.
# panic attack
He has similar feeling last night and felt clammy, sob, palpitations. Vital were stable, HR on Monitor was SR and stable around 70s. Pt reports anxiety at times with panic feeling
He will benefit from optimizing ant-anxiety medications with his PCP. dD/W pt, he will be given low dose Ativan until he sees his Primary care doctor. Pt is aware that Ativan is temporary measure, sedative and controlled substance. He was son Luisx
in the past.
BRITTNEY
Creatinine is coming down
No flank pain
# . DM II - on 75/25 60 bid and Trulicity
HGB A1c 9.1
- sliding scale acsh
- 70/30 40 units bid
# Chronic diarrhea from DM meds
# GERD -
- continue ppi
# Primary HTN
- c/w metoprolol for now
# Depression -
Mood is cooperative
- continue buspirone
- off duloxetine for 30 days, holding
DVT PPX - on apixaban
Code status - full code
Total discharge time spent to see the patient, examine the patient on the floor, review data and lab results, discuss discharge plan with patient, nursing staff around 65 minutes
Anticipated Discharge: Today
Subjective/Interval History
-
Date of Service: September 02, 2024
No chest pain
No sob
Objective Data
-
Vital Signs:
Vital Signs
Temp Pulse Resp BP Pulse Ox
98.2 F 59 18 124/78 95
09/02/24 04:49 09/02/24 04:48 09/02/24 04:49 09/02/24 04:48 09/02/24 04:49
I&O
08/31/24 09/01/24 09/02/24
06:59 06:59 06:59
Intake Total 1919
Balance 1919
[2024-09-02 07:16] VITALS: BP 122/76
[2024-09-02 07:43] LABS: Glucose - Point of Care 103 mg/dl (70-99)
[2024-09-02] MEDS: TAMBOCOR 100 MG PO (08:02)
[2024-09-02] MEDS: ELIQUIS 5 MG PO (08:02)
[2024-09-02] MEDS: PROTONIX 40 MG PO (08:02)
[2024-09-02] MEDS: CRESTOR 40 MG PO (08:02)
[2024-09-02] MEDS: TOPROL XL 100 MG PO (08:02)
[2024-09-02] MEDS: BUSPAR 20 MG PO (08:02)
[2024-09-02] MEDS: FLUSH (NSS) 1 FLUSH IV (08:02)
[2024-09-02] MEDS: NOVOLOG MIX 70/30 FLEXPEN 20 UNITS SC (08:03)
[2024-09-02] MEDS: NOVOLOG FLEXPEN-HIGH RESISTANCE 1 UNITS SC (08:04)
[2024-09-02 11:43] LABS: Glucose - Point of Care 166 mg/dl (70-99)
[2024-09-02 11:45] VITALS: BP 121/85
[2024-09-02] MEDS: NOVOLOG FLEXPEN-HIGH RESISTANCE 2 UNITS SC (11:47)
--- NOTE | 2024-09-02 12:24 | W.DCSUMMARY ---
Discharge Summary
Discharge Data
Date of Admission: 08/31/24
Date of Discharge: 09/02/24
-
Pending Results: No
Hospital Course
59 years old male with history of paroxysmal atrial fibrillation and diabetes presented to the hospital with palpitations. Patient was found in atrial fibrillation with rapid ventricular response. Had acute kidney injury. Patient reported that he
was taking his medications regularly. His heart rate was around 90-100. Patient was admitted to the hospital. He was maintained on metoprolol, Eliquis and flecainide. Patient converted to sinus rhythm. He was evaluated by director talent.
Patient had appointment with cardiology and was advised to follow-up. Patient had acute kidney injury of unclear etiology. His creatinine came down. He did not have retention. He was given mild IV fluid. Patient had another episode of
palpitations in the hospital with anxiety feeling. His vital signs were noted to be stable and he remained in sinus rhythm on heart monitor. He was diagnosed with mild panic attack. Patient has history of anxiety and reported episodes of panic
feeling at home. Patient was given low-dose of Ativan to follow-up with his primary care doctor. Patient was counseled regarding Ativan use and potential side effects and he verbalized understanding. Patient remained hemodynamically stable and
was discharged home in a stable condition.
Discharge Plan
-
Patient Disposition: Home (Routine Discharge)
Discharge Diagnosis/Procedures: Afib
Anxiety, You had mild panic attack, you were given a script of low dose Ativan. Ativan is a benzodiazepine, controlled substance. Avoid taking it while driving or operating machines because it causes sedation/ drowsiness, can interact with your
anxiety pills. Discuss with your family doctor to optimize your anxiety medications if needed.
Condition: Good
Diet: As tolerated
Referrals:
Marissa Lopez MD [Active] - 09/06/24 4:20 pm
Fe Jackson PA-C [Family Provider] -
Prescriptions:
New
lorazepam [Ativan] 0.5 mg tablet
0.5 mg PO DAILY PRN (Reason: anxiety) Qty: 10 0RF
Continued
trazodone 150 mg Tablet
300 mg PO HS
buspirone 10 mg Tablet
20 mg PO BID
Eliquis 5 mg Tablet
5 mg PO BID
omeprazole 20 mg Capsule,Delayed Release(Dr/Ec)
20 mg PO DAILY
insulin lispro protamin-lispro [Humalog Mix 75-25 KwikPen] 100 unit/mL (75-25) Insulin Pen
60 unit SC BID
rosuvastatin 40 mg Tablet
40 mg PO DAILY
cholecalciferol (vitamin D3) 50 mcg (2,000 unit) Tablet
50 mcg PO HS
Trulicity 1.5 mg/0.5 mL Pen Injector
1.5 mg SC TU
atorvastatin 20 mg Tablet
20 mg PO HS Qty: 30 0RF
metoprolol succinate 100 mg Tablet Extended Release 24 Hr
100 mg PO BID Qty: 60 0RF
flecainide 100 mg Tablet
100 mg PO Q12 Qty: 60 0RF
dapagliflozin propanediol 10 mg tablet
10 mg PO DAILY
Discharge Orders:
Discharge Patient (As Directed); Ordered 09/02/24
Ordered By: Rebeca Spence
Care Plan Goals
Care Plan Goals:
Problem: Readiness for enhanced knowledge related to diagnosis and treatment plan
Goal: Understand your diagnosis and treatment plan needs, including medications if applicable.
Instructions: Know your diagnosis, underlying causes and treatment plan options, including medications if applicable. Consult with your health care team to learn about your diagnosis and treatment plan, including medications if applicable.
Discharge Date and Time
Print Language: TAMAZIGHT
== END 2024-09-02 13:23 | disposition home or self-care (01) | DRG 309 ==
LOC: IVU 23:31
PROVIDERS: Student in an Organized Health Care Education/Training Program; ADMITTING PHYSICIAN Hospitalist; ATTENDING PHYSICIAN Internal Medicine; CONSULT PHYSICIAN Internal Medicine; EMERGENCY PHYSICIAN Emergency Medicine; FAMILY PHYSICIAN Physician Assistant
DX: I48.0 Paroxysmal atrial fibrillation (principal); N17.9 Acute kidney failure, unspecified; E11.9 Type 2 diabetes mellitus without complications; F41.0 Panic disorder [episodic paroxysmal anxiety]; E66.9 Obesity, unspecified; Z68.34 Body mass index [BMI] 34.0-34.9, adult; I10 Essential (primary) hypertension; K21.9 Gastro-esophageal reflux disease without esophagitis
CPT/HCPCS: 71046; 80053; 82962; 83880; 84484; 85025; 93005; 99285

== ENCOUNTER 2024-09-11 07:39 | Day surgery (SDC) | payer OTHER, SELFPAY ==
[2024-09-11] VITALS (11 sets, daily range): BP systolic 114–157; BP diastolic 58–81; BMI 35.3
[2024-09-11 08:42] LABS: Glucose - Point of Care 269 mg/dl (70-99)
[2024-09-11] MEDS: NOVOLOG vial 7 UNITS SC (09:23)
--- NOTE | 2024-09-11 09:39 | PTCARENOTE ---
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
[2024-09-11 12:34] LABS: Glucose - Point of Care 173 mg/dl (70-99)
--- NOTE | 2024-09-11 13:41 | ITS.CL.ABL ---
Appliquer - Ablation
Ablation
Procedure Report:
AFIB ablation:
Mr. Young is a very pleasant 59 yr old gentleman with symptomatic paroxysmal AF presented today to the EP lab for atrial fibrillation ablation.
Date of the Procedure:
09/11/2024
Indications:
Paroxysmal atrial fibrillation
Pre-Operative Diagnosis:
Paroxysmal atrial fibrillation
Post-Operative Diagnosis:
Paroxysmal atrial fibrillation
Procedure Performed:
Atrial fibrillation ablation with Pulsed-Field approach for pulmonary vein isolation
Performing Physician:
Marissa Lopez MD
Assistants:
EP staff
Anesthesia:
See anesthesia records
Detailed Description of the Procedure:
Written informed consent was obtained from the patient after a full explanation of the risks and benefits of the procedure including the risks of sedation and anesthesia.
A SHIRAZ was done that showed no sign of thrombus in the left atrium.
The patient was brought to the electrophysiology laboratory in stable condition in fasting state. Continuous electrocardiographic and hemodynamic monitoring was initiated.
The initial rhythm was normal sinus rhythm.
The procedure site was meticulously prepared with surgical scrub and allowed to dry with no pooling. Sterile draping was applied to cover the procedure site. The image intensifier was draped with sterile bag and positioned over the patient. After
infusion of local anesthetic, vascular access was obtained under ultrasound guidance and sheaths were placed over guide wire as detailed below.
Sheath and Catheter Placement:
In the right femoral vein, an 8-Angolan sheath was placed under ultrasound guidance for use during the ablation procedure and a mapping catheter was intermittently placed in the high right atrium, right ventricle, left atrium. In the right femoral
vein, another 9-Fr sheath was placed for use during intra-cardiac echo procedure. Another 7Fr sheath was placed in the left femoral vein for CS catheter placement.
The sheaths were upgraded as needed during the case. Intra-cardiac catheters were positioned using direct fluoroscopic guidance. Decapolar catheter advanced into CS position. ICE catheter was placed in RA. The following catheters / sheaths were
placed
Sheaths:
��������� 15Fr steerable sheath (FlexCath Cross�, [employer]) in right femoral vein in right femoral vein
��������� 9Fr in right femoral vein
Catheters:
��������� RICHA HD Grid mapping catheter � at locations of RA, LA
��������� PulseSelect� PFA catheter
��������� ICE catheter -AcuNav - at locations of RA, SVC, and RV.
Intracardiac ECHO:
An 8-Angolan AcuNav intracardiac ECHO (ICE) probe was advanced through the 9-Angolan sheath in the right femoral vein into the right atrium under fluoroscopic and ICE ultrasound image guidance and a baseline ECHO study was performed. The left atrial
size was mildly dilated. There was moderate tricuspid regurgitation. The aortic valve was grossly normal. There was normal left ventricular systolic functions. There is no pericardial effusion. All the four veins were identified and has flow
identified.
During the procedure, ICE was used for monitoring of complications, guidance of trans-septal puncture, monitor the catheter position and tracking ablation lesions. No change in the pericardial space noted throughout the procedure.
Trans-septal Puncture:
Heparin was initiated and infused to maintain appropriate ACT. A J-tipped guidewire was advanced through the 8-Angolan sheath in the right femoral vein into the superior vena cava under fluoroscopic and ICE guidance. The 8-Angolan sheath was exchanged
for a FlexCath Cross sheath which was advanced into the superior vena cava. An [employer] transseptal access system was utilized to perform the trans-septal puncture. The apparatus was withdrawn until it was in contact with the fossa ovalis. The
position was adjusted based on fluoroscopy and ultrasound images from ICE. Under fluoroscopic, hemodynamic and ICE ultrasound guidance, left atrium was cannulated by advancing the needle. Once atrial septum was cannulated, the needle was pulled back
and a guide wire was advanced through the needle into the left atrium. The guide wire was advanced into the left superior pulmonary vein. Both the sheath and the dilator was advanced into the left atrium. The dilator with the needle was withdrawn.
Blood was aspirated from the FlexCath cross sheath and arterial blood confirmed. The sheath was flushed. Saline injection noted into the left atrium on ICE. The mapping catheter was advanced in the Agilis sheath into the left pulmonary vein. Left
atrial pressure was measured.
3D Electroanatomic Mapping:
Using the HD Grid catheter advanced through sheath into the left atrium, an electroanatomic map (EAM) of the left atrium was created using [employer] mapping system. The map was used for localization of catheter position and tacking of ablation
lesions. The EAM of the left atrium showed 4 pulmonary veins with two left sided and two right sided veins electrically connected to the body the LA. The EAM showed no significant scar in the left atrium.
The LA was normal in size.
Following the EAM, preparation were made for ablation.
Ablation:
Ablation # 1: Pulmonary vein Isolation:
Glycopyrrolate 0.2 mg was given prior to the placement of ablation. Using [employer]� pulsed field ablation system, pulmonary vein isolation was achieved. First the ablation catheter was placed in the LSPV and ostial ablation lesions were performed
in a counter clock mckeon approach all around the PV ostium circumferentially. Then the catheter was placed on the antral location and multiple ablation lesions were placed circumferentially on the antrum of the vein.
In the similar fashion, the LIPV were isolated.
Then the catheter was moved to right sided veins. The ostial and antral ablations were placed as noted above to the RSPV and RIPV.
Post ablation Electroanatomic mapping:
Once the sinus rhythm achieved, the LA was mapped with HD grid in detail.
The veins were isolated and normal electrograms noted in the posterior wall. Excellent WACA ablation noted with excellent demarcation of LA myocardium and isolated antral tissue. There was dissociated signals were noted in the veins as well.
EPS and Confirmation of the PVI and bidirectional block:
Following achievement of entrance block at the pulmonary veins, pacing from the HD catheter in each of the four veins at 10 milliamps for 2 milliseconds showed entrance and exit block. All PVI were rechecked at the end of the case and remained
isolated with dissociated and local capture with pacing. Entrance and exit block were demonstrated in all veins.
Procedure End
ICE study was done again that showed no epicardial accumulation. No complications noted.
Following the completion of the EP study, catheters were removed. Protamine 40 mg was given at the end of the procedure and ACT was checked repeatedly. The sheaths were removed and hemostasis achieved with VASCADE and manual compression after
acceptable ACT is achieved.
Left atrial Pressure:
Pre-ablation: Mean LA pressure was 15mmHg
Post ablation: Mean LA pressure was 18mmHg
Post ablation: Mean RA pressure was 15mmHg
Estimated Blood loss:
<10 cc
Specimens Removed:
None.
Implants / Devices:
None
Urine output:
None
Packs / Drains/ Tubes:
None
Instrument / Sponge Count Correct:
Yes
Complications of the Procedure:
None
Condition of Patient at Time of Transfer:
Hemodynamically stable with no neurological or vascular compromise.
Summary:
Successful atrial fibrillation ablation with Pulsed Field approach for pulmonary vein isolation
Figures from the Procedure:
Figure 1: The electroanatomic mapping (EAM) of the left atrium with bipolar voltage (purple indicates normal electrical activity with fay as no myocardial muscle electric activity indicating a line of block or scar.
--- NOTE | 2024-09-11 15:10 | PTCARENOTE ---
pt accu check 230 , psych arnp candis aguilar aware and states no sliding scale to be used now. pt will take his nightly insuline when he gets home.
[2024-09-11 15:11] LABS: Glucose - Point of Care 230 mg/dl (70-99)
--- NOTE | 2024-09-11 16:33 | W.PN.UPDATE ---
Update Note
Progress Note Update
Pt seen post PFA. Right groin with vascade closure, no ht/bleeding, oob ambulating, urinating without difficulty. Post EKG NSR 70s, no acute changes. Resume eliquis tonight, continue other meds as before. Followup at [facility] as scheduled. Home today if
groin site/tele remain stable.
Groin yeast infection noted and clotrimazole cream order sent to pharmacy with application instructions.
[2024-09-13 09:01] LABS: ACT-LR - POC 261 Seconds (116-155)
[2024-09-13 09:01] LABS: ACT-LR - POC 329 Seconds (116-155)
[2024-09-13 09:01] LABS: ACT-LR - POC 300 Seconds (116-155)
== END 2024-09-11 16:37 | disposition home or self-care (01) ==
LOC: CATH 07:39
PROVIDERS: ATTENDING PHYSICIAN Internal Medicine Cardiovascular Disease; FAMILY PHYSICIAN Physician Assistant; OTHER PHYSICIAN Internal Medicine Cardiovascular Disease
DX: I48.0 Paroxysmal atrial fibrillation (principal); I48.3 Typical atrial flutter; I08.3 Combined rheumatic disorders of mitral, aortic and tricuspid valves; R06.02 Shortness of breath; I10 Essential (primary) hypertension; K21.9 Gastro-esophageal reflux disease without esophagitis; E11.9 Type 2 diabetes mellitus without complications; Z87.891 Personal history of nicotine dependence; Z79.01 Long term (current) use of anticoagulants; Z79.4 Long term (current) use of insulin; Z79.84 Long term (current) use of oral hypoglycemic drugs
CPT/HCPCS: 93312; 93320; 93325; C1732; C1894; C1733; C1769; C1892; C1759; 82962; 85347; 86850; 86900; 86901; 93005; 93656; C1760